=== PATIENT | male | born 1955 | race African-American/Black ===

== ENCOUNTER 2016-06-09 10:32 | Inpatient (IN) | payer OTHER ==
--- NOTE | 2016-06-09 13:57 | HP ---
COWS - Scale Resting Pulse: 0= [place] 80 or Below Sweatin= Chills/Flushing Restless Observation: 3= Extraneous Movement Pupil Size: 2= Moderately Dilated Bone or Joint Aches: 4=Acute Joint/Muscle Pain Runny Nose/ Eye Tearin= Runny Nose/Eyes GI Upset > 30mins: 2= Nausea/Diarrhea Tremor Observation: 1= Tremor [place], Not Seen Yawning Observation: 2= >3x During Session Anxiety or Irritability: 2=Irritable/Anxious Goose Flesh Skin: 0=Smooth Skin COWS Score: 19 CIWA Score - CIWA Score Nausea/Vomitin-Int. Nausea w/Dry Heave Muscle Tremors: 3 Anxiety: 4-Mod. Anxious/Guarded Agitation: 3 Paroxysmal Sweats: 1-Minimal Palms Moist Orientation: 0-Oriented Tacttile Disturbances: 3-Moderate Itch/Numb/Burn Auditory Disturbances: 0-None Visual Disturbances: 0-None Headache: 2-Mild CIWA-Ar Total Score: 20 Admission ROS BHS - HPI Chief Complaint: DETOX TX FOR ALCOHOL AND HEROIN DEPENDENCE Allergies/Adverse Reactions: Allergies Allergy/AdvReac Type Severity Reaction Status Date / Time Pork/Porcine Containing Allergy Unknown Swelling Verified 06/09/16 12:06 Products No Known Drug Allergies Allergy Verified 06/09/16 12:06 History of Present Illness: 60 Y/O AA/MALE WITH A HX OF HEROIN,ALCOHOL AND COCAINE DEPENDENCE SEEKING DETOX [place] Exam Limitations: No Limitations - Ebola screening Have you traveled outside of the country in the last 21 days: No Have you had contact with anyone from an Ebola affected area: No Have you been sick,other than usual withdrawal symptoms: No Do you have a fever: No - Review of Systems Constitutional: Chills, Loss of Appetite, Night Sweats, Changes in sleep, Unintentional Wgt. Loss EENT: reports: Blurred Vision, Nose Congestion, Dental Problems, Other (DRY EYES ) Respiratory: reports: No Symptoms reported Cardiac: reports: Lightheadedness GI: reports: Constipated, Diarrhea, Nausea, Poor Appetite, Vomiting, Abdominal cramping : reports: No Symptoms Reported Musculoskeletal: reports: Back Pain, Joint Pain, Muscle Pain, Neck Pain Integumentary: reports: Lesions (LEFT LEG), Rash (LEFT LEG) Neuro: reports: Headache, Unsteady Gait, Dizziness Endocrine: reports: No Symptoms Reported Hematology: reports: Anemia Psychiatric: reports: Orientated x3, Anxious, Depressed Other Systems: Reviewed and Negative Patient History - Patient Medical History Hx Anemia: Yes (NO MEDS) Hx Asthma: No Hx Chronic Obstructive Pulmonary Disease (COPD): No Hx Cancer: No Hx Cardiac Disorders: No Hx Congestive Heart Failure: No Hx Hypertension: Yes (NO CURRENT MEDS) Hx Hypercholesterolemia: No Hx Pacemaker: No HX Cerebrovascular Accident: No Hx Seizures: No Hx Dementia: No Hx Diabetes: No Hx Gastrointestinal Disorders: No Hx Liver Disease: No Hx Genitourinary Disorders: No Hx Sexually Transmitted Disorders: No Hx Renal Disease (ESRD): No Hx Thyroid Disease: No Hx Human Immunodeficiency Virus (HIV): No (NEGATIVE HX) Hx Hepatitis C: Yes (NO TREATMENT) Hx Depression: Yes (NO CURRENT MED) Hx Suicide Attempt: No (DENIES) Hx Schizophrenia: No - Patient Surgical History Past Surgical History: No Hx Neurologic Surgery: No Hx Cataract Extraction: No Hx Cardiac Surgery: No Hx Lung Surgery: No Hx Breast Surgery: No Hx Breast Biopsy: No Hx Abdominal Surgery: No Hx Appendectomy: No Hx Cholecystectomy: No Hx Genitourinary Surgery: No Hx Orthopedic Surgery: No Anesthesia Reaction: No - PPD History Previous Implant?: Yes Documented Results: Positive w/o proof Implanted On Prior [facility] Admission?: No Results: POSITIVE PPD to be Administered?: No - Reproductive History Patient is a Female of Child Bearing Age (11 -55 yrs old): No (MALE) - Smoking Cessation Smoking history: Current every day smoker Have you smoked in the past 12 months: Yes Aproximately how many cigarettes per day: 20 Cigars Per Day: 20 Hx Chewing Tobacco Use: No Initiated information on smoking cessation: Yes 'Breaking Loose' booklet given: 06/09/16 - Substance & Tx. History Hx Alcohol Use: Yes (BEER) Hx Substance Use: Yes (HEROIN/CRACK) Substance Use Type: Alcohol, Cocaine, Heroin Hx Substance Use Treatment: Yes ([facility]-DETOX) - Substances Abused Heroin Route: Inhalation Frequency: Daily Amount used: 8-10 bags Age of first use: 18 Date of Last Use: 06/08/16 Crack Route: Smoking Frequency: Daily Amount used: $150 Age of first use: 26 Date of Last Use: 06/08/16 Alcohol-beer Route: Oral Frequency: 3-6 times per week Amount used: 3-4 (24 oz.) Age of first use: 15 Date of Last Use: 06/08/16 Family Disease History - Family Disease History Family Disease History: Other: Father (HTN,alcohol) Admission Physical Exam [facility] - Vital Signs Vital Signs: Vital Signs - 24 hr 06/09/16 11:14 Temperature 96.5 F L Pulse Rate 53 L Respiratory 18 Rate Blood Pressure 162/102 - Physical General Appearance: Yes: Moderate Distress, Irritable, Anxious HEENTM: Yes: EOMI, Normocephalic, JOSE ALBERTO, Pharynx Normal Respiratory: Yes: Chest Non-Tender, Lungs Clear, Normal Breath Sounds, No Respiratory Distress Neck: Yes: Supple, Trachea in good position Breast: Yes: Breast Exam Deferred Cardiology: Yes: Regular Rhythm, S1, S2, Irregular Abdominal: Yes: Normal Bowel Sounds, Non Tender, Soft Genitourinary: Yes: Other (N/C) Back: Yes: Within Normal Limits Musculoskeletal: Yes: full range of Motion, Gait Steady Extremities: Yes: Normal Range of Motion, Non-Tender Neurological: Yes: newspaper delivery driver II-XII NML intact, Fully Oriented, Alert, Motor Strength 5/5 Integumentary: Yes: Dry, Warm Lymphatic: Yes: Within Normal Limits - Diagnostic (1) Anemia, macrocytic Current Visit: Yes Status: Suspected (2) HTN (hypertension) Current Visit: Yes Status: Chronic Qualifiers: Hypertension type: essential hypertension Qualified Code(s): I10 - Essential (primary) hypertension (3) Nicotine dependence Current Visit: Yes Status: Acute Qualifiers: Nicotine product type: cigarettes Substance use status: in withdrawal Qualified Code(s): F17.213 - Nicotine dependence, cigarettes, with withdrawal (4) Opioid dependence with withdrawal Current Visit: Yes Status: Acute (5) Cocaine dependence, uncomplicated Current Visit: Yes Status: Acute (6) Alcohol dependence with uncomplicated withdrawal Current Visit: Yes Status: Acute (7) Hx of hepatitis C Current Visit: Yes Status: Chronic (8) History of depression Current Visit: Yes Status: Chronic (9) Dry eyes, bilateral Current Visit: Yes Status: Chronic Cleared for Admission [facility] - Detox or Rehab [facility] Level of Care: Medically Managed Detox Regimen/Protocol: Methadone/Librium [facility] Breath Alcohol Content Breath Alcohol Content: 0 Urine Drug Screen - Results Drug Screen Negative: No Urine Drug Screen Results: ANA ROSA-Cocaine, OPI-Opiates
[2016-06-09] MEDS ORDERED: MENTHOL/PHENOL 1 EACH UD MM PRN (14:11)
[2016-06-09] MEDS ORDERED: chlordiazePOXIDE HCL 25 MG CAPSULE PO PRN (14:11)
[2016-06-09] MEDS ORDERED: P-EPHED 60MG/TRIPROLIDI 2.5MG TABLET PO PRN (14:11)
[2016-06-09] MEDS ORDERED: MAGNESIUM HYDROX 2400MG/30ML ORAL SUSPENSION 30 ML CUP PO PRN (14:11)
[2016-06-09] MEDS ORDERED: MAG HYDROX/AL HYDROX/SIMETH 30 ML UNIT-DOSE CUP PO PRN (14:11)
[2016-06-09] MEDS ORDERED: MAGNESIUM CITRATE 300 ML BOTTLE PO PRN (14:11)
[2016-06-09] MEDS ORDERED: LOPERAMIDE HCL 2 MG CAPSULE PO PRN (14:11)
[2016-06-09] MEDS ORDERED: hydrOXYzine PAMOATE 25 MG CAPSULE (FP) PO PRN (14:11)
[2016-06-09] MEDS ORDERED: guaiFENesin/D-METHORPHAN HB 10 ML UNIT-DOSE CUPS PO PRN (14:11)
[2016-06-09] MEDS ORDERED: NICOTINE POLACRILEX 4 MG GUM BUC PRN (14:11)
[2016-06-09] MEDS ORDERED: IBUPROFEN 400 MG TABLET (FP) PO PRN (14:11)
[2016-06-09] MEDS ORDERED: amLODIPine BESYLATE 10 MG TABLET (FP) PO ONE (14:28)
[2016-06-09] MEDS ORDERED: chlordiazePOXIDE HCL 25 MG CAPSULE PO ONE (14:29)
[2016-06-09] MEDS ORDERED: HYDROCHLOROTHIAZIDE 25 MG TABLET (FP) PO SCH (14:30)
[2016-06-09] MEDS ORDERED: METHADONE HCL 10 MG TABLET (FOR DETOX USE ONLY) PO ONE ×2 (14:30→23:00)
[2016-06-09] MEDS: NICOTINE 21 MG/24 HOURS TOPICAL PATCH TD SCH (15:08)
[2016-06-09] MEDS: ARTIFICIAL TEARS (POLYVINYL ALCOHOL 1.4%) OPTH DROPS OU SCH ×2 (15:10→22:22)
[2016-06-09] MEDS: chlordiazePOXIDE HCL 25 MG CAPSULE PO SCH ×2 (17:20→22:21)
[2016-06-09 20:18] LABS: URINE APPEARANCE CLEAR; URINE BILIRUBIN NEGATIVE (NEGATIVE); URINE BLOOD NEGATIVE (NEGATIVE); URINE COLOR YELLOW; URINE GLUCOSE (UA) 1+ (NEGATIVE); URINE KETONE NEGATIVE (NEGATIVE); URINE LEUK ESTERASE NEGATIVE (NEGATIVE); URINE NITRITE NEGATIVE (NEGATIVE); URINE UROBILINOGEN NEGATIVE E.U./dl (0.2-1.0)
[2016-06-09 20:21] LABS: URINE PROTEIN 1+ (NEGATIVE)
[2016-06-09 20:24] LABS: URINE HYALINE CAST 1 /lpf; URINE MUCUS RARE; URINE RBC 1 /hpf (0-3); URINE WBC 1 /hpf (3-5)
[2016-06-09] MEDS: THIAMINE HCL 100 MG TABLET (FP) PO SCH (22:21)
[2016-06-09] MEDS: TOLNAFTATE 1% CREAM 15 GM TUBE TP SCH (22:22)
[2016-06-09] MEDS: diphenhydrAMINE HCL 50 MG CAPSULE PO PRN (22:22)
[2016-06-10] MEDS: chlordiazePOXIDE HCL 25 MG CAPSULE PO SCH ×4 (06:11→22:23)
[2016-06-10] MEDS: ARTIFICIAL TEARS (POLYVINYL ALCOHOL 1.4%) OPTH DROPS OU SCH ×3 (06:13→22:22)
[2016-06-10] MEDS: ACETAMINOPHEN 325 MG TABLET (FP) PO PRN ×2 (06:14→19:50)
[2016-06-10] MEDS ORDERED: METHADONE HCL 10 MG TABLET (FOR DETOX USE ONLY) PO SCH (10:00)
[2016-06-10 10:06] LABS: MCH 33.3 pg (25.7-33.7); MCHC 34.1 g/dl (32.0-35.9); MEAN CELL VOLUME 97.7 fl (80-96); MEAN PLT VOLUME 9.2 fl (7.5-11.1); RDW 11.9 % (11.9-15.9); WHITE BLOOD COUNT 4.2 K/mm3 (4.0-10.0)
[2016-06-10] MEDS ORDERED: ONDANSETRON *ODT* 4 MG TABLET SL PRN (10:22)
[2016-06-10] MEDS: amLODIPine BESYLATE 10 MG TABLET (FP) PO SCH (10:24)
[2016-06-10] MEDS: TOLNAFTATE 1% CREAM 15 GM TUBE TP SCH ×2 (10:24→22:22)
[2016-06-10] MEDS: PRENATAL VITAMINS W/ FOLIC ACID TABLET (FP) PO SCH (10:24)
[2016-06-10] MEDS: NICOTINE 21 MG/24 HOURS TOPICAL PATCH TD SCH (10:25)
[2016-06-10 10:51] LABS: ALBUMIN 3.9 g/dl (3.4-5.0); BILIRUBIN,TOTAL 1.7 mg/dL (0.2-1.0); CALCIUM 8.5 mg/dL (8.5-10.1); CREATININE 1.8 mg/dL (0.7-1.3); TOT PROT 7.2 g/dl (6.4-8.2)
--- NOTE | 2016-06-10 11:07 | CONSULT ---
[facility] Psychiatric Consult - Data Date of interview: 06/10/16 Admission source: [facility] Identifying data: Readmission to [facility] for this 60 y/o AA male seeking detox treatment for heroin,cocaine and alcohol dependence.Patient is single,a father of three,domiciled,unemployed and supported on [facility]. Substance Abuse History: - Smoking Cessation. Smoking history: Current every day smoker. Have you smoked in the past 12 months: Yes. Aproximately how many cigarettes per day: 20. Cigars Per Day: 20. Hx Chewing Tobacco Use: No. Initiated information on smoking cessation: Yes. 'Breaking Loose' booklet given : 06/09/16. - Substance & Tx. History. Hx Alcohol Use: Yes (BEER). Hx Substance Use: Yes (HEROIN/CRACK). Substance Use Type: Alcohol, Cocaine, Heroin. Hx Substance Use Treatment: Yes ([facility]-DETOX). - Substances Abused. * * Heroin. Route: Inhalation. Frequency: Daily. Amount used: 8-10 bags. Age of first use: 18. Date of Last Use: 06/08/16. Crack. Route: Smoking. Frequency: Daily. Amount used: $150. Age of first use: 26. Date of Last Use: 06/08/16. Alcohol-beer. Route: Oral. Frequency: 3-6 times per week. Amount used: 3-4 (24 oz.). Age of first use: 15. Date of Last Use: 06/08/16. Confirmed by patient. Medical History: Anemia,hepatitis C and hypertension. Psychiatric History: No psychiatric hospitalizations.Diagnosed with MDD.Patient used to be followed at the [facility] in [place].Mr Centeno denies being on any medications.No history of suicide attempts. Physical/Sexual Abuse/Trauma History: Patient denies. Additional Comment: Urine Drug Screen Results: ANA ROSA-Cocaine, OPI-Opiates.Noted. Mental Status Exam - Mental Status Exam Alert and Oriented to: Time, Place, Person Cognitive Function: Good Patient Appearance: Well Groomed Mood: Withdrawn Affect: Mood Congruent, Constricted Patient Behavior: Fatigued, Appropriate, Cooperative Speech Pattern: Clear Voice Loudness: Normal Thought Process: Goal Oriented Thought Disorder: Not Present Hallucinations: Denies Suicidal Ideation: Denies Homicidal Ideation: Denies Insight/Judgement: Poor Sleep: Poorly, Difficulty falling asleep Appetite: Good Muscle strength/Tone: Normal Gait/Station: Normal Psychiatric Findings - Problem List ([place] 1, 2,3) (1) Alcohol dependence with uncomplicated withdrawal Current Visit: Yes Status: Acute (2) Cocaine dependence, uncomplicated Current Visit: Yes Status: Acute (3) Nicotine dependence Current Visit: Yes Status: Acute Qualifiers: Nicotine product type: cigarettes Substance use status: in withdrawal Qualified Code(s): F17.213 - Nicotine dependence, cigarettes, with withdrawal (4) Opioid dependence with withdrawal Current Visit: Yes Status: Acute (5) Drug-induced mood disorder Current Visit: Yes Status: Acute (6) Dry eyes, bilateral Current Visit: Yes Status: Chronic (7) HTN (hypertension) Current Visit: Yes Status: Chronic Qualifiers: Hypertension type: essential hypertension Qualified Code(s): I10 - Essential (primary) hypertension (8) Hx of hepatitis C Current Visit: Yes Status: Chronic (9) Anemia, macrocytic Current Visit: Yes Status: Suspected (10) Insomnia Current Visit: Yes Status: Chronic - Initial Treatment Plan Initial Treatment Plan: Psychoeducation.Detoxification.Seroquel 50 mg po hs.Side effects/benefits discussed with the patient.Made aware of risk of metabolic syndrome,abnormal involuntary movements,oversedation/falls.Patient gave his agreement to follow this careplan.Observation.
--- NOTE | 2016-06-10 11:21 | PN ---
S CIWA - CIWA Score Nausea/Vomitin (N/VD) Muscle Tremors: 4-Moderate,w/Arms Extend Anxiety: 4-Mod. Anxious/Guarded Agitation: 4-Moderately Restless Paroxysmal Sweats: 1-Minimal Palms Moist Orientation: 0-Oriented Tacttile Disturbances: 3-Moderate Itch/Numb/Burn Auditory Disturbances: 0-None Visual Disturbances: 0-None Headache: 0-None Present CIWA-Ar Total Score: 21 BHS COWS - Scale Resting Pulse: 1= [place] 81-100 Sweatin= Chills/Flushing Restless Observation: 3= Extraneous Movement Pupil Size: 2= Moderately Dilated Bone or Joint Aches: 4=Acute Joint/Muscle Pain Runny Nose/ Eye Tearin= Nasal Congestion GI Upset > 30mins: 3= Vomiting/Diarrhea Tremor Observation of Outstretched Hands: 2= Slight Tremor Visible Yawning Observation: 2= >3x During Session Anxiety or Irritability: 2=Irritable/Anxious Goose Flesh Skin: 0=Smooth Skin COWS Score: 21 S Progress Note (SOAP) Subjective: ANXIETY,SWEATS,N/V/D, IRRITABILITY, BODY ACHES, FATIGUE Objective: 06/10/16 11:20 Vital Signs 06/10/16 06/10/16 06/10/16 03:30 06:20 10:56 Temperature 97.8 F 96.8 F L Pulse Rate 86 70 Respiratory 18 18 18 Rate Blood Pressure 156/86 149/96 Laboratory Last Values WBC 4.2 K/mm3 (4.0-10.0) D 06/10/16 06:00 RBC 3.59 M/mm3 (4.00-5.60) L 06/10/16 06:00 Hgb 12.0 GM/dL (11.7-16.9) 06/10/16 06:00 Hct 35.1 % (35.4-49) L 06/10/16 06:00 MCV 97.7 fl (80-96) H 06/10/16 06:00 MCHC 34.1 g/dl (32.0-35.9) 06/10/16 06:00 RDW 11.9 % (11.9-15.9) 06/10/16 06:00 Plt Count K/MM3 (134-434) 06/10/16 06:00 MPV 9.2 fl (7.5-11.1) 06/10/16 06:00 Sodium 141 mmol/L (136-145) 06/10/16 06:00 Potassium 3.5 mmol/L (3.5-5.1) 06/10/16 06:00 Chloride 108 mmol/L (98-107) H 06/10/16 06:00 Carbon Dioxide 22 mmol/L (21-32) 06/10/16 06:00 Anion Gap 11 (8-16) 06/10/16 06:00 BUN 20 mg/dL (7-18) H 06/10/16 06:00 Creatinine 1.8 mg/dL (0.7-1.3) H D 06/10/16 06:00 Creat Clearance w eGFR 38.68 (>60) 06/10/16 06:00 Random Glucose 115 mg/dL (74-106) H D 06/10/16 06:00 Calcium 8.5 mg/dL (8.5-10.1) 06/10/16 06:00 Total Bilirubin 1.7 mg/dL (0.2-1.0) H D 06/10/16 06:00 AST 29 U/L (15-37) D 06/10/16 06:00 ALT 12 U/L (12-78) 06/10/16 06:00 Alkaline Phosphatase 83 U/L (45-117) D 06/10/16 06:00 Total Protein 7.2 g/dl (6.4-8.2) 06/10/16 06:00 Albumin 3.9 g/dl (3.4-5.0) 06/10/16 06:00 Urine Color Yellow 06/09/16 19:00 Urine Appearance Clear 06/09/16 19:00 Urine pH 6.0 (5.0-8.0) 06/09/16 19:00 Ur Specific [place] 1.019 (1.001-1.035) 06/09/16 19:00 Urine Protein 1+ (NEGATIVE) H 06/09/16 19:00 Urine Glucose (UA) 1+ (NEGATIVE) H 06/09/16 19:00 Urine Ketones Negative (NEGATIVE) 06/09/16 19:00 Urine Blood Negative (NEGATIVE) 06/09/16 19:00 Urine Nitrite Negative (NEGATIVE) 06/09/16 19:00 Urine Bilirubin Negative (NEGATIVE) 06/09/16 19:00 Urine Urobilinogen Negative E.U./dl (0.2-1.0) 06/09/16 19:00 Ur Leukocyte Esterase Negative (NEGATIVE) 06/09/16 19:00 Urine RBC 1 /hpf (0-3) 06/09/16 19:00 Urine WBC 1 /hpf (3-5) 06/09/16 19:00 Ur Epithelial Cells Rare /hpf (FEW) 06/09/16 19:00 Hyaline Casts 1 /lpf 06/09/16 19:00 Urine Mucus Rare 06/09/16 19:00 Assessment: 06/10/16 11:21 WITHDRAWAL SX Plan: CONTINUE DETOX
[2016-06-10] MEDS ORDERED: INFLUENZA VACCINE 45 MCG/0.5 ML (MDV 16-17) IM ONE (12:00)
[2016-06-10 12:39] LABS: PLATELET COMMENT2 NO CLOTTING DETECTED
--- NOTE | 2016-06-10 16:56 | EKG ---
Test Reason : Blood Pressure : / mmHG Vent. Rate : 071 BPM Atrial Rate : 071 BPM P-R Int : 170 ms QRS Dur : 086 ms QT Int : 406 ms P-R-T Axes : 079 -09 099 degrees QTc Int : 441 ms SINUS RHYTHM WITH PREMATURE ATRIAL COMPLEXES WITH ABERRANT CONDUCTION PREMATURE VENTRICULAR AND FUSION COMPLEXES RIGHT ATRIAL ENLARGEMENT ABNORMAL ECG NO PREVIOUS ECGS AVAILABLE Confirmed by PAULA CAMERON MD ([id number]) on 06/10/2016 4:55:52 PM Referred By: Confirmed By:PAULA CAMERON MD
[2016-06-10] MEDS: QUEtiapine FUMARATE 50 MG TABLET PO SCH (22:22)
[2016-06-10] MEDS: THIAMINE HCL 100 MG TABLET (FP) PO SCH (22:22)
[2016-06-11] MEDS: ARTIFICIAL TEARS (POLYVINYL ALCOHOL 1.4%) OPTH DROPS OU SCH ×3 (05:46→22:20)
[2016-06-11] MEDS: chlordiazePOXIDE HCL 25 MG CAPSULE PO SCH ×2 (05:47→10:24)
[2016-06-11] MEDS: TOLNAFTATE 1% CREAM 15 GM TUBE TP SCH ×2 (10:24→22:21)
[2016-06-11] MEDS: amLODIPine BESYLATE 10 MG TABLET (FP) PO SCH (10:24)
[2016-06-11] MEDS: PRENATAL VITAMINS W/ FOLIC ACID TABLET (FP) PO SCH (10:24)
[2016-06-11] MEDS: METHADONE HCL 5 MG TABLET (FOR DETOX USE ONLY) PO SCH (10:24)
[2016-06-11] MEDS: NICOTINE 21 MG/24 HOURS TOPICAL PATCH TD SCH (10:24)
--- NOTE | 2016-06-11 10:41 | PN ---
S CIWA - CIWA Score Nausea/Vomitin-Int. Nausea w/Dry Heave Muscle Tremors: 4-Moderate,w/Arms Extend Anxiety: 4-Mod. Anxious/Guarded Agitation: 4-Moderately Restless Paroxysmal Sweats: 1-Minimal Palms Moist Orientation: 0-Oriented Tacttile Disturbances: 3-Moderate Itch/Numb/Burn Auditory Disturbances: 0-None Visual Disturbances: 0-None Headache: 0-None Present CIWA-Ar Total Score: 20 BHS COWS - Scale Resting Pulse: 1= [place] 81-100 Sweatin= Chills/Flushing Restless Observation: 3= Extraneous Movement Pupil Size: 2= Moderately Dilated Bone or Joint Aches: 4=Acute Joint/Muscle Pain Runny Nose/ Eye Tearin= Runny Nose/Eyes GI Upset > 30mins: 2= Nausea/Diarrhea Tremor Observation of Outstretched Hands: 2= Slight Tremor Visible Yawning Observation: 1= 1-2x During Session Anxiety or Irritability: 2=Irritable/Anxious Goose Flesh Skin: 0=Smooth Skin COWS Score: 20 BHS Progress Note (SOAP) Subjective: ANXIETY,IRRITABILITY,CHILLS/SWEATS,HEADACHE,FATIGUE,DECREASED APPETITE. Objective: 06/11/16 10:40 Vital Signs 06/11/16 06/11/16 06/11/16 03:30 06:34 10:16 Temperature 96.4 F L 98.3 F Pulse Rate 89 80 Respiratory 18 16 20 Rate Blood Pressure 127/84 120/80 Assessment: 06/11/16 10:40 WITHDRAWAL SX Plan: CONTINUE DETOX ZOFRAN DIRECTED
[2016-06-11] MEDS: chlordiazePOXIDE 5 MG CAPSULE PO SCH ×2 (17:16→22:21)
[2016-06-11] MEDS: ACETAMINOPHEN 325 MG TABLET (FP) PO PRN (17:19)
[2016-06-11] MEDS ORDERED: ASPIRIN 325 MG ENTERIC COATED TABLET (FP) PO ONE (20:27)
--- NOTE | 2016-06-11 20:30 | PN ---
[facility] Progress Note Note: RECEIVED NURSE CALL, PATIENT HAS HEADACHE, TREATED WITH ASPIRIN AT HOME EFFECTIVELY, DENIES GI DISTRESS DENIES GI ADVERSE REACTION FROM ASPIRIN DISCONTINUE MOTRIN ASPIRIN 325 MG X 1 WITH FOOD CONTINUE DETOX
[2016-06-11] MEDS: THIAMINE HCL 100 MG TABLET (FP) PO SCH (22:20)
[2016-06-11] MEDS: QUEtiapine FUMARATE 50 MG TABLET PO SCH (22:21)
[2016-06-11] MEDS: diphenhydrAMINE HCL 50 MG CAPSULE PO PRN (22:22)
[2016-06-12] MEDS: ARTIFICIAL TEARS (POLYVINYL ALCOHOL 1.4%) OPTH DROPS OU SCH ×3 (06:12→22:22)
[2016-06-12] MEDS: chlordiazePOXIDE 5 MG CAPSULE PO SCH ×2 (06:16→10:29)
[2016-06-12] MEDS: METHADONE HCL 5 MG TABLET (FOR DETOX USE ONLY) PO SCH (10:29)
[2016-06-12] MEDS: PRENATAL VITAMINS W/ FOLIC ACID TABLET (FP) PO SCH (10:29)
[2016-06-12] MEDS: NICOTINE 21 MG/24 HOURS TOPICAL PATCH TD SCH (10:29)
[2016-06-12] MEDS: TOLNAFTATE 1% CREAM 15 GM TUBE TP SCH ×2 (10:29→22:22)
[2016-06-12] MEDS: amLODIPine BESYLATE 10 MG TABLET (FP) PO SCH (10:29)
--- NOTE | 2016-06-12 11:08 | PN ---
BHS Progress Note (SOAP) Subjective: ANXIETY,SWEATS,,DECREASED FATIGUE. Objective: 06/12/16 11:08 Vital Signs Temperature 97.9 F 06/12/16 09:26 Pulse Rate 76 06/12/16 09:26 Respiratory Rate 18 06/12/16 09:26 Blood Pressure 150/93 06/12/16 09:26 O2 Sat by Pulse Oximetry (%) Assessment: 06/12/16 11:08 WITHDRAWAL SX Plan: CONTINUE DETOX
[2016-06-12] MEDS: chlordiazePOXIDE HCL 10 MG CAPSULE PO SCH ×2 (17:24→22:23)
[2016-06-12] MEDS: ACETAMINOPHEN 325 MG TABLET (FP) PO PRN (17:27)
[2016-06-12] MEDS: CYCLOBENZAPRINE HCL 10 MG TABLET (FP) PO PRN (17:27)
[2016-06-12] MEDS: QUEtiapine FUMARATE 50 MG TABLET PO SCH (22:23)
[2016-06-12] MEDS: diphenhydrAMINE HCL 50 MG CAPSULE PO PRN (22:23)
[2016-06-12] MEDS: THIAMINE HCL 100 MG TABLET (FP) PO SCH (22:23)
[2016-06-13] MEDS: chlordiazePOXIDE HCL 10 MG CAPSULE PO SCH ×2 (06:27→10:25)
[2016-06-13] MEDS: ARTIFICIAL TEARS (POLYVINYL ALCOHOL 1.4%) OPTH DROPS OU SCH ×3 (06:28→22:27)
[2016-06-13] MEDS ORDERED: METHADONE HCL 10 MG TABLET (FOR DETOX USE ONLY) PO SCH (10:00)
[2016-06-13] MEDS: NICOTINE 21 MG/24 HOURS TOPICAL PATCH TD SCH (10:25)
[2016-06-13] MEDS: amLODIPine BESYLATE 10 MG TABLET (FP) PO SCH (10:25)
[2016-06-13] MEDS: TOLNAFTATE 1% CREAM 15 GM TUBE TP SCH ×2 (10:25→22:27)
[2016-06-13] MEDS: PRENATAL VITAMINS W/ FOLIC ACID TABLET (FP) PO SCH (10:25)
--- NOTE | 2016-06-13 11:33 | PN ---
BHS Progress Note (SOAP) Subjective: sweating,interrupted sleep,restless Objective: 06/13/16 11:32 Vital Signs - 8 hr 06/13/16 10:55 Temperature 98.0 F Pulse Rate 80 Respiratory 20 Rate Blood Pressure 149/98 Laboratory Tests 06/09/16 06/10/16 06/10/16 19:00 06:00 06:00 WBC 4.2 D RBC 3.59 L Hgb 12.0 Hct 35.1 L MCV 97.7 H MCHC 34.1 RDW 11.9 Plt Count Nuisance Animal Damage Control Agent MPV 9.2 Platelet Comment No clotting detected Sodium 141 Potassium 3.5 Chloride 108 H Carbon Dioxide 22 Anion Gap 11 BUN 20 H Creatinine 1.8 H D Creat Clearance w eGFR 38.68 Random Glucose 115 H D Calcium 8.5 Total Bilirubin 1.7 H D AST 29 D ALT 12 Alkaline Phosphatase 83 D Total Protein 7.2 Albumin 3.9 Urine Color Yellow Urine Appearance Clear Urine pH 6.0 Ur Specific [place] 1.019 Urine Protein 1+ H Urine Glucose (UA) 1+ H Urine Ketones Negative Urine Blood Negative Urine Nitrite Negative Urine Bilirubin Negative Urine Urobilinogen Negative Ur Leukocyte Esterase Negative Urine RBC 1 Urine WBC 1 Ur Epithelial Cells Rare Hyaline Casts 1 Urine Mucus Rare RPR Titer 06/10/16 06:00 WBC RBC Hgb Hct MCV MCHC RDW Plt Count MPV Platelet Comment Sodium Potassium Chloride Carbon Dioxide Anion Gap BUN Creatinine Creat Clearance w eGFR Random Glucose Calcium Total Bilirubin AST ALT Alkaline Phosphatase Total Protein Albumin Urine Color Urine Appearance Urine pH Ur Specific [place] Urine Protein Urine Glucose (UA) Urine Ketones Urine Blood Urine Nitrite Urine Bilirubin Urine Urobilinogen Ur Leukocyte Esterase Urine RBC Urine WBC Ur Epithelial Cells Hyaline Casts Urine Mucus RPR Titer Nonreactive labs noted Assessment: 06/13/16 11:32 Withdrawal sx. Plan: Continue detox
[2016-06-13] MEDS: SODIUM CHLORIDE NASAL SPRAY 44 ML BOTTLE NS PRN ×2 (15:28→22:27)
[2016-06-13] MEDS: CYCLOBENZAPRINE HCL 10 MG TABLET (FP) PO PRN (17:12)
[2016-06-13] MEDS: ACETAMINOPHEN 325 MG TABLET (FP) PO PRN ×2 (17:13→22:30)
--- NOTE | 2016-06-13 21:56 | PN ---
[id number] PATIENT AMBULATING ON [address] WAY, ALERT, ORIENTED X 3, NO ACUTE DISTRESS, STEADY GAIT, SPEECH CLEARLY PATIENT POINTING RIGHT MID CHEST WALL IMMOBILE 10/30 UNCLASSIFIED PAIN X 3 MONTHS , DENIES TRAUMA, DENIES MUSCLE STRAIN, DENIES ACID REFLUX S1S2 RRR, CLEAR LUNG SOUNDS BILATERALLY, DENIES NAUSEA DENIES VOMITING, REGULAR BOWEL X 1 TODAY, DENIES ALTERATION APPETITE, TOLERATE FLUID FOOD WELL, 95% O2 SAT, DENIES WEAKNESS,
[2016-06-13] MEDS: THIAMINE HCL 100 MG TABLET (FP) PO SCH (22:24)
[2016-06-13] MEDS: diphenhydrAMINE HCL 50 MG CAPSULE PO PRN (22:28)
[2016-06-13] MEDS: QUEtiapine FUMARATE 50 MG TABLET PO SCH (22:28)
[2016-06-14] MEDS ORDERED: METHADONE HCL 5 MG TABLET (FOR DETOX USE ONLY) PO SCH (06:00)
[2016-06-14] MEDS: ARTIFICIAL TEARS (POLYVINYL ALCOHOL 1.4%) OPTH DROPS OU SCH (06:09)
--- NOTE | 2016-06-14 10:28 | DS ---
[facility] Detox Discharge Summary Admission Date: 06/09/16 Discharge Date: 06/14/16 - History Present History: Alcohol Dependence, Cocaine Dependence, Opioid Dependence Pertinent Past History: HTN HEP C - Physical Exam Results Vital Signs: Vital Signs Temperature 97.9 F 06/14/16 09:49 Pulse Rate 116 H 06/14/16 09:49 Respiratory Rate 18 06/14/16 09:49 Blood Pressure 134/92 06/14/16 09:49 O2 Sat by Pulse Oximetry (%) Pertinent Admission Physical Exam Findings: Withdrawal sx. Laboratory Last Values WBC 4.2 K/mm3 (4.0-10.0) D 06/10/16 06:00 RBC 3.59 M/mm3 (4.00-5.60) L 06/10/16 06:00 Hgb 12.0 GM/dL (11.7-16.9) 06/10/16 06:00 Hct 35.1 % (35.4-49) L 06/10/16 06:00 MCV 97.7 fl (80-96) H 06/10/16 06:00 MCHC 34.1 g/dl (32.0-35.9) 06/10/16 06:00 RDW 11.9 % (11.9-15.9) 06/10/16 06:00 Plt Count [employer] Lab Technician 06/10/16 06:00 MPV 9.2 fl (7.5-11.1) 06/10/16 06:00 Platelet Comment Marked plt clumping 06/10/16 06:00 Platelet Comment No clotting detected 06/10/16 06:00 Sodium 141 mmol/L (136-145) 06/10/16 06:00 Potassium 3.5 mmol/L (3.5-5.1) 06/10/16 06:00 Chloride 108 mmol/L (98-107) H 06/10/16 06:00 Carbon Dioxide 22 mmol/L (21-32) 06/10/16 06:00 Anion Gap 11 (8-16) 06/10/16 06:00 BUN 20 mg/dL (7-18) H 06/10/16 06:00 Creatinine 1.8 mg/dL (0.7-1.3) H D 06/10/16 06:00 Creat Clearance w eGFR 38.68 (>60) 06/10/16 06:00 Random Glucose 115 mg/dL (74-106) H D 06/10/16 06:00 Calcium 8.5 mg/dL (8.5-10.1) 06/10/16 06:00 Total Bilirubin 1.7 mg/dL (0.2-1.0) H D 06/10/16 06:00 AST 29 U/L (15-37) D 06/10/16 06:00 ALT 12 U/L (12-78) 06/10/16 06:00 Alkaline Phosphatase 83 U/L (45-117) D 06/10/16 06:00 Total Protein 7.2 g/dl (6.4-8.2) 06/10/16 06:00 Albumin 3.9 g/dl (3.4-5.0) 06/10/16 06:00 Urine Color Yellow 06/09/16 19:00 Urine Appearance Clear 06/09/16 19:00 Urine pH 6.0 (5.0-8.0) 06/09/16 19:00 Ur Specific [place] 1.019 (1.001-1.035) 06/09/16 19:00 Urine Protein 1+ (NEGATIVE) H 06/09/16 19:00 Urine Glucose (UA) 1+ (NEGATIVE) H 06/09/16 19:00 Urine Ketones Negative (NEGATIVE) 06/09/16 19:00 Urine Blood Negative (NEGATIVE) 06/09/16 19:00 Urine Nitrite Negative (NEGATIVE) 06/09/16 19:00 Urine Bilirubin Negative (NEGATIVE) 06/09/16 19:00 Urine Urobilinogen Negative E.U./dl (0.2-1.0) 06/09/16 19:00 Ur Leukocyte Esterase Negative (NEGATIVE) 06/09/16 19:00 Urine RBC 1 /hpf (0-3) 06/09/16 19:00 Urine WBC 1 /hpf (3-5) 06/09/16 19:00 Ur Epithelial Cells Rare /hpf (FEW) 06/09/16 19:00 Hyaline Casts 1 /lpf 06/09/16 19:00 Urine Mucus Rare 06/09/16 19:00 RPR Titer Nonreactive (NONREACTIVE) 06/10/16 06:00 labs noted - Treatment Hospital Course: Detox Protocol Followed, Detoxed Safely, Responded well, Discharged Condition Good, Rehab Referral Accepted - Medication Discharge Medications: Ambulatory Orders Unobtainable [Unobtainable] 06/09/16 - Diagnosis (1) Alcohol dependence with uncomplicated withdrawal Current Visit: Yes Status: Acute (2) Cocaine dependence, uncomplicated Current Visit: Yes Status: Acute (3) Opioid dependence with withdrawal Current Visit: Yes Status: Acute (4) HTN (hypertension) Current Visit: Yes Status: Chronic Qualifiers: Hypertension type: essential hypertension Qualified Code(s): I10 - Essential (primary) hypertension (5) Hx of hepatitis C Current Visit: Yes Status: Chronic (6) Drug-induced mood disorder Current Visit: Yes Status: Acute (7) Nicotine dependence Current Visit: Yes Status: Acute Qualifiers: Nicotine product type: cigarettes Substance use status: in withdrawal Qualified Code(s): F17.213 - Nicotine dependence, cigarettes, with withdrawal (8) Insomnia Current Visit: Yes Status: Chronic - AMA Did Patient Leave Against Medical Advice: No
[2016-06-14] MEDS: TOLNAFTATE 1% CREAM 15 GM TUBE TP SCH (10:40)
[2016-06-14] MEDS: NICOTINE 21 MG/24 HOURS TOPICAL PATCH TD SCH (10:40)
[2016-06-14] MEDS: PRENATAL VITAMINS W/ FOLIC ACID TABLET (FP) PO SCH (10:40)
[2016-06-14] MEDS: amLODIPine BESYLATE 10 MG TABLET (FP) PO SCH (10:40)
[2016-06-14] MEDS: SODIUM CHLORIDE NASAL SPRAY 44 ML BOTTLE NS PRN (10:41)
[2016-06-14] MEDS: ACETAMINOPHEN 325 MG TABLET (FP) PO PRN (10:42)
[2016-06-14 11:38] VITALS: BP 128/75; PULSE 92; TEMP 97.5
--- NOTE | 2016-06-16 12:43 | EKG ---
Test Reason : Blood Pressure : / mmHG Vent. Rate : 081 BPM Atrial Rate : 081 BPM P-R Int : 156 ms QRS Dur : 072 ms QT Int : 368 ms P-R-T Axes : 070 -01 028 degrees QTc Int : 427 ms NORMAL SINUS RHYTHM BIATRIAL ENLARGEMENT NONSPECIFIC ST AND T WAVE ABNORMALITY ABNORMAL ECG WHEN COMPARED WITH ECG OF 09-JUN-2016 14:15, PREMATURE VENTRICULAR AND FUSION COMPLEXES ARE NO LONGER PRESENT T WAVE AMPLITUDE HAS DECREASED IN ANTERIOR LEADS T WAVE VARIATION Confirmed by PAULA CAMERON MD ([id number]) on 06/16/2016 12:42:45 PM Referred By: Confirmed By:PAULA CAMERON MD
== END 2016-06-14 13:02 | disposition other institution (70) | DRG 773 ==
LOC: YASAS 10:32 → Y3N 14:03
PROVIDERS: ADMIT Internal Medicine; ATTEND Internal Medicine
PROC: HZ2ZZZZ Detoxification Services for Substance Abuse Treatment (ICD-10-PCS; principal; 2016-06-14)
DX: F11.23 Opioid dependence with withdrawal (principal); F10.230 Alcohol dependence with withdrawal, uncomplicated; F14.20 Cocaine dependence, uncomplicated; F17.213 Nicotine dependence, cigarettes, with withdrawal; F19.24 Other psychoactive substance dependence with psychoactive substance-induced mood disorder; F32.9 Major depressive disorder, single episode, unspecified; G47.00 Insomnia, unspecified; I10 Essential (primary) hypertension; B18.2 Chronic viral hepatitis C; D50.9 Iron deficiency anemia, unspecified; H04.123 Dry eye syndrome of bilateral lacrimal glands
CPT/HCPCS: 36415; 71020-TC; 80053; 81003; 81015; 85027; 86593; 93005; 93010

== ENCOUNTER 2016-08-04 11:00 | Inpatient (IN) | payer OTHER ==
[2016-08-04 12:52] VITALS: BMI 20.3
--- NOTE | 2016-08-04 14:19 | HP ---
COWS - Scale Resting Pulse: 0= [place] 80 or Below Sweatin=Flushed/Facial Moisture Restless Observation: 1= Difficult to Sit Still Pupil Size: 0= Normal to Room Light Bone or Joint Aches: 2= Severe Diffuse Aches Runny Nose/ Eye Tearin= Runny Nose/Eyes GI Upset > 30mins: 2= Nausea/Diarrhea Tremor Observation: 2= Slight Tremor Visible Yawning Observation: 2= >3x During Session Anxiety or Irritability: 2=Irritable/Anxious Goose Flesh Skin: 3=Piloerection COWS Score: 18 CIWA Score - CIWA Score Nausea/Vomitin-Mild Nausea/No Vomiting Muscle Tremors: 4-Moderate,w/Arms Extend Anxiety: 3 Agitation: 4-Moderately Restless Paroxysmal Sweats: 3 Orientation: 0-Oriented Tacttile Disturbances: 0-None Auditory Disturbances: 0-None Visual Disturbances: 0-None Headache: 0-None Present CIWA-Ar Total Score: 15 Admission ROS S - HPI Chief Complaint: I am here for detox. Allergies/Adverse Reactions: Allergies Allergy/AdvReac Type Severity Reaction Status Date / Time Pork/Porcine Containing Allergy Unknown Swelling Verified 08/04/16 13:51 Products No Known Drug Allergies Allergy Verified 08/04/16 13:51 History of Present Illness: pt is a60yr old male with a history of alcohol, opioid and cocaine dependence seeking detox for treatment. Exam Limitations: No Limitations - Ebola screening Have you traveled outside of the country in the last 21 days: No Have you had contact with anyone from an Ebola affected area: No Have you been sick,other than usual withdrawal symptoms: No Do you have a fever: No - Review of Systems Constitutional: Chills, Diaphoresis, Loss of Appetite, Night Sweats, Unintentional Wgt. Loss, Other EENT: reports: Tearing, Nose Congestion, Other (dry eyes) Respiratory: reports: No Symptoms reported Cardiac: reports: No Symptoms Reported GI: reports: Nausea, Poor Appetite : reports: No Symptoms Reported Musculoskeletal: reports: Back Pain, Joint Pain, Muscle Pain Integumentary: reports: Flushing, Sweating, Other Neuro: reports: Tingling, Tremors Endocrine: reports: Excessive Sweating, Flushing, Intolerance to Cold, Intolerance to Heat Hematology: reports: No Symptoms Reported Psychiatric: reports: Judgement Intact, Mood/Affect Appropiate, Orientated x3, Agitated, Anxious Other Systems: Reviewed and Negative Patient History - Patient Medical History Hx Anemia: No Hx Asthma: No Hx Chronic Obstructive Pulmonary Disease (COPD): No Hx Cancer: No Hx Cardiac Disorders: No Hx Congestive Heart Failure: No Hx Hypertension: Yes Hx Hypercholesterolemia: No Hx Pacemaker: No HX Cerebrovascular Accident: No Hx Seizures: No Hx Dementia: No Hx Diabetes: No Hx Gastrointestinal Disorders: No Hx Liver Disease: No Hx Genitourinary Disorders: No Hx Sexually Transmitted Disorders: No Hx Renal Disease (ESRD): No Hx Thyroid Disease: No Hx Human Immunodeficiency Virus (HIV): No (NEGATIVE HX) Hx Hepatitis C: Yes (NO TREATMENT) Hx Depression: No Hx Suicide Attempt: No (denies ) Hx Bipolar Disorder: No Hx Schizophrenia: No - Patient Surgical History Past Surgical History: No Hx Neurologic Surgery: No Hx Cataract Extraction: No Hx Cardiac Surgery: No Hx Lung Surgery: No Hx Breast Surgery: No Hx Breast Biopsy: No Hx Abdominal Surgery: No Hx Appendectomy: No Hx Cholecystectomy: No Hx Genitourinary Surgery: No Hx Section: No Hx Orthopedic Surgery: No Anesthesia Reaction: No - PPD History Previous Implant?: Yes Documented Results: Positive w/o proof Results: cxray(-)06/10/16 PPD to be Administered?: No - Reproductive History Patient is a Female of Child Bearing Age (11 -55 yrs old): No - Smoking Cessation Smoking history: Current every day smoker Have you smoked in the past 12 months: Yes Aproximately how many cigarettes per day: 15 Cigars Per Day: 20 Hx Chewing Tobacco Use: No Initiated information on smoking cessation: Yes 'Breaking Loose' booklet given: 08/04/16 - Substance & Tx. History Hx Alcohol Use: Yes Hx Substance Use: Yes Substance Use Type: Alcohol, Cocaine, Heroin Hx Substance Use Treatment: Yes - Substances Abused Heroin Route: Inhalation Frequency: Daily Amount used: 10 bags Age of first use: 18 Date of Last Use: 08/03/16 Cocaine Route: Inhalation Frequency: Daily Amount used: $200 Age of first use: 18 Date of Last Use: 08/03/16 Alcohol-beer Route: Oral Frequency: Daily Amount used: 2-6 pks. Age of first use: 17 Date of Last Use: 08/03/16 Family Disease History - Family Disease History Family Disease History: Other: Father (HTN,alcohol) Admission Physical Exam [facility] - Vital Signs Vital Signs: Vital Signs - 24 hr 08/04/16 12:50 Temperature 98.4 F Pulse Rate 68 Respiratory 20 Rate Blood Pressure 155/95 - Physical General Appearance: Yes: Appropriately Dressed, Tremorous, Irritable, Sweating, Anxious HEENTM: Yes: Normal Voice, Nasal Congestion Respiratory: Yes: Lungs Clear, Normal Breath Sounds, No Respiratory Distress Neck: Yes: No masses,lesions,Nodules Breast: Yes: Within Normal Limits Cardiology: Yes: Regular Rhythm, Regular Rate, S1, S2 Abdominal: Yes: Normal Bowel Sounds, Non Tender, Soft Genitourinary: Yes: Within Normal Limits Back: Yes: Normal Inspection Musculoskeletal: Yes: full range of Motion, Back pain Extremities: Yes: Normal Capillary Refill, Normal Inspection, Tremors Neurological: Yes: Fully Oriented, Alert, Normal Response Integumentary: Yes: Diaphoresis Lymphatic: Yes: Within Normal Limits - Diagnostic (1) Alcohol dependence with uncomplicated withdrawal Current Visit: Yes Status: Chronic (2) Cocaine dependence, uncomplicated Current Visit: Yes Status: Chronic (3) Nicotine dependence Current Visit: Yes Status: Chronic Qualifiers: Nicotine product type: cigarettes Substance use status: uncomplicated Qualified Code(s): F17.210 - Nicotine dependence, cigarettes, uncomplicated (4) Opioid dependence with withdrawal Current Visit: Yes Status: Chronic (5) Dry eyes, bilateral Current Visit: Yes Status: Chronic (6) HTN (hypertension) Current Visit: Yes Status: Chronic Qualifiers: Hypertension type: essential hypertension Qualified Code(s): I10 - Essential (primary) hypertension (7) Hx of hepatitis C Current Visit: No Status: Chronic Cleared for Admission [facility] - Detox or Rehab [facility] Level of Care: Medically Managed Detox Regimen/Protocol: Methadone/Librium [facility] Breath Alcohol Content Breath Alcohol Content: 0 Urine Drug Screen - Results Drug Screen Negative: No Urine Drug Screen Results: ANA ROSA-Cocaine, OPI-Opiates
[2016-08-04] MEDS ORDERED: chlordiazePOXIDE HCL 25 MG CAPSULE PO PRN (14:29)
[2016-08-04] MEDS ORDERED: MAGNESIUM CITRATE 300 ML BOTTLE PO PRN (14:29)
[2016-08-04] MEDS ORDERED: MENTHOL/PHENOL 1 EACH UD MM PRN (14:29)
[2016-08-04] MEDS ORDERED: P-EPHED 60MG/TRIPROLIDI 2.5MG TABLET PO PRN (14:29)
[2016-08-04] MEDS ORDERED: IBUPROFEN 400 MG TABLET (FP) PO PRN (14:29)
[2016-08-04] MEDS ORDERED: LOPERAMIDE HCL 2 MG CAPSULE PO PRN (14:29)
[2016-08-04] MEDS ORDERED: MAG HYDROX/AL HYDROX/SIMETH 30 ML UNIT-DOSE CUP PO PRN (14:29)
[2016-08-04] MEDS ORDERED: ACETAMINOPHEN 325 MG TABLET (FP) PO PRN (14:29)
[2016-08-04] MEDS ORDERED: guaiFENesin/D-METHORPHAN HB 10 ML UNIT-DOSE CUPS PO PRN (14:29)
[2016-08-04] MEDS ORDERED: MAGNESIUM HYDROX 2400MG/30ML ORAL SUSPENSION 30 ML CUP PO PRN (14:29)
[2016-08-04] MEDS ORDERED: chlordiazePOXIDE HCL 25 MG CAPSULE PO ONE (14:51)
[2016-08-04] MEDS ORDERED: METHADONE HCL 10 MG TABLET (FOR DETOX USE ONLY) PO ONE ×2 (14:52→23:00)
[2016-08-04] MEDS: ASPIRIN 325 MG TABLET PO SCH (15:55)
[2016-08-04] MEDS: amLODIPine BESYLATE 10 MG TABLET (FP) PO SCH (15:57)
[2016-08-04] MEDS: chlordiazePOXIDE HCL 25 MG CAPSULE PO SCH ×2 (17:04→22:12)
[2016-08-04 20:36] LABS: URINE APPEARANCE CLEAR; URINE BILIRUBIN NEGATIVE (NEGATIVE); URINE BLOOD NEGATIVE (NEGATIVE); URINE COLOR YELLOW; URINE GLUCOSE (UA) NEGATIVE (NEGATIVE); URINE KETONE NEGATIVE (NEGATIVE); URINE LEUK ESTERASE NEGATIVE (NEGATIVE); URINE NITRITE NEGATIVE (NEGATIVE); URINE UROBILINOGEN NEGATIVE E.U./dl (0.2-1.0)
[2016-08-04 20:37] LABS: URINE PROTEIN 1+ (NEGATIVE)
[2016-08-04 20:45] LABS: URINE HYALINE CAST 3 /lpf; URINE MUCUS RARE; URINE RBC 3 /hpf (0-3); URINE WBC 2 /hpf (3-5)
[2016-08-04] MEDS: diphenhydrAMINE HCL 50 MG CAPSULE PO PRN (22:12)
[2016-08-04] MEDS: THIAMINE HCL 100 MG TABLET (FP) PO SCH (22:12)
[2016-08-04] MEDS: ARTIFICIAL TEARS (POLYVINYL ALCOHOL 1.4%) OPTH DROPS OU PRN (22:14)
[2016-08-05] MEDS: chlordiazePOXIDE HCL 25 MG CAPSULE PO SCH ×4 (05:52→22:56)
[2016-08-05] MEDS: ARTIFICIAL TEARS (POLYVINYL ALCOHOL 1.4%) OPTH DROPS OU PRN ×3 (05:58→22:59)
[2016-08-05] MEDS ORDERED: METHADONE HCL 10 MG TABLET (FOR DETOX USE ONLY) PO SCH (10:00)
[2016-08-05 10:20] LABS: MCH 33.3 pg (25.7-33.7); MCHC 32.9 g/dl (32.0-35.9); MEAN CELL VOLUME 101.3 fl (80-96); MEAN PLT VOLUME 9.8 fl (7.5-11.1); PLATELET COUNT 175 K/MM3 (134-434); RDW 12.7 % (11.9-15.9); WHITE BLOOD COUNT 3.7 K/mm3 (4.0-10.0)
[2016-08-05] MEDS: ASPIRIN 325 MG TABLET PO SCH (10:40)
[2016-08-05] MEDS: amLODIPine BESYLATE 10 MG TABLET (FP) PO SCH (10:40)
[2016-08-05] MEDS: PRENATAL VITAMINS W/ FOLIC ACID TABLET (FP) PO SCH (10:40)
[2016-08-05] MEDS: NICOTINE 21 MG/24 HOURS TOPICAL PATCH TD SCH (10:45)
--- NOTE | 2016-08-05 11:12 | PN ---
[facility] Progress Note Note: left top foot fungal rash; lidex cream and bacitracin ordered encouraged to keep feet elevated to reduce mild swelling
[2016-08-05 11:14] LABS: ALBUMIN 4.8 g/dl (3.4-5.0); BILIRUBIN,TOTAL 1.5 mg/dL (0.2-1.0); CALCIUM 9.3 mg/dL (8.5-10.1); COCKROFT - GAULT 39.78; CREATININE 1.9 mg/dL (0.7-1.3); TOT PROT 8.5 g/dl (6.4-8.2)
[2016-08-05] MEDS: BACITRACIN 0.9 GM PACKET TP SCH (11:40)
--- NOTE | 2016-08-05 11:47 | PN ---
[facility] CIWA - CIWA Score Nausea/Vomitin Muscle Tremors: 3 Anxiety: 3 Agitation: 3 Paroxysmal Sweats: 1-Minimal Palms Moist Orientation: 0-Oriented Tacttile Disturbances: 1-Very Mild Itch/Numbness Auditory Disturbances: 1-Very Mild Visual Disturbances: 1-Very Mild Sensitivity Headache: 2-Mild CIWA-Ar Total Score: 18 [facility] COWS - Scale Resting Pulse: 0= [place] 80 or Below Sweatin= Chills/Flushing Restless Observation: 3= Extraneous Movement Pupil Size: 1= Pupils >than Normal Bone or Joint Aches: 2= Severe Diffuse Aches Runny Nose/ Eye Tearin= Runny Nose/Eyes GI Upset > 30mins: 3= Vomiting/Diarrhea Tremor Observation of Outstretched Hands: 2= Slight Tremor Visible Yawning Observation: 1= 1-2x During Session Anxiety or Irritability: 2=Irritable/Anxious Goose Flesh Skin: 0=Smooth Skin COWS Score: 17 S Progress Note (SOAP) Subjective: ALERT,IRRITABLE,ANXIOUS,INTERRUPTED SLEEP,PAIN IN THE BODY AND BACK Objective: 08/05/16 11:45 Vital Signs Temperature 97.9 F 08/05/16 09:45 Pulse Rate 83 08/05/16 09:45 Respiratory Rate 16 08/05/16 09:45 Blood Pressure 143/88 08/05/16 09:45 O2 Sat by Pulse Oximetry (%) EKG NSR 60/MIN NO CHEST PAIN,NO SOB,NO DIZZINESS Laboratory Last Values WBC 3.7 K/mm3 (4.0-10.0) L 08/05/16 06:00 RBC 3.96 M/mm3 (4.00-5.60) L 08/05/16 06:00 Hgb 13.2 GM/dL (11.7-16.9) 08/05/16 06:00 Hct 40.1 % (35.4-49) 08/05/16 06:00 MCV 101.3 fl (80-96) H 08/05/16 06:00 MCHC 32.9 g/dl (32.0-35.9) 08/05/16 06:00 RDW 12.7 % (11.9-15.9) 08/05/16 06:00 Plt Count 175 K/MM3 (134-434) 08/05/16 06:00 MPV 9.8 fl (7.5-11.1) 08/05/16 06:00 Urine Color Yellow 08/04/16 20:07 Urine Appearance Clear 08/04/16 20:07 Urine pH 5.0 (5.0-8.0) 08/04/16 20:07 Ur Specific [place] 1.020 (1.005-1.025) 08/04/16 20:07 Urine Protein 1+ (NEGATIVE) H 08/04/16 20:07 Urine Glucose (UA) Negative (NEGATIVE) 08/04/16 20:07 Urine Ketones Negative (NEGATIVE) 08/04/16 20:07 Urine Blood Negative (NEGATIVE) 08/04/16 20:07 Urine Nitrite Negative (NEGATIVE) 08/04/16 20:07 Urine Bilirubin Negative (NEGATIVE) 08/04/16 20:07 Urine Urobilinogen Negative E.U./dl (0.2-1.0) 08/04/16 20:07 Ur Leukocyte Esterase Negative (NEGATIVE) 08/04/16 20:07 Urine RBC 3 /hpf (0-3) 08/04/16 20:07 Urine WBC 2 /hpf (3-5) 08/04/16 20:07 Ur Epithelial Cells Rare /hpf (FEW) 08/04/16 20:07 Hyaline Casts 3 /lpf 08/04/16 20:07 Urine Mucus Rare 08/04/16 20:07 LABS PENDING Assessment: 08/05/16 11:46 WITHDRAWAL SYMPTOM Plan: CONTINUE DETOX
[2016-08-05] MEDS: hydrOXYzine PAMOATE 50 MG CAPSULE (FP) PO PRN (12:51)
[2016-08-05] MEDS: FLUOCINONIDE 0.05% CREAM (15 GM TUBE) TP SCH ×2 (14:13→22:56)
--- NOTE | 2016-08-05 17:22 | EKG ---
Test Reason : Blood Pressure : / mmHG Vent. Rate : 061 BPM Atrial Rate : 061 BPM P-R Int : 162 ms QRS Dur : 086 ms QT Int : 412 ms P-R-T Axes : 077 012 044 degrees QTc Int : 414 ms NORMAL SINUS RHYTHM BIATRIAL ENLARGEMENT LEFT VENTRICULAR HYPERTROPHY CANNOT RULE OUT SEPTAL INFARCT , AGE UNDETERMINED ABNORMAL ECG WHEN COMPARED WITH ECG OF 13-JUN-2016 16:21, MINIMAL CRITERIA FOR SEPTAL INFARCT ARE NOW PRESENT Confirmed by PAULA CAMERON MD ([id number]) on 08/05/2016 5:21:35 PM Referred By: Confirmed By:PALUA CAMERON MD
[2016-08-05] MEDS: THIAMINE HCL 100 MG TABLET (FP) PO SCH (22:56)
[2016-08-05] MEDS: diphenhydrAMINE HCL 50 MG CAPSULE PO PRN (22:56)
[2016-08-06] MEDS: chlordiazePOXIDE HCL 25 MG CAPSULE PO SCH ×2 (05:35→10:50)
[2016-08-06] MEDS: FLUOCINONIDE 0.05% CREAM (15 GM TUBE) TP SCH ×3 (06:50→22:42)
--- NOTE | 2016-08-06 09:14 | PN ---
[facility] CIWA - CIWA Score Nausea/Vomitin-No Nausea/No Vomiting Muscle Tremors: 4-Moderate,w/Arms Extend Anxiety: 3 Agitation: 4-Moderately Restless Paroxysmal Sweats: 3 Orientation: 0-Oriented Tacttile Disturbances: 0-None Auditory Disturbances: 0-None Visual Disturbances: 0-None Headache: 0-None Present CIWA-Ar Total Score: 14 S COWS - Scale Resting Pulse: 0= [place] 80 or Below Sweatin=Flushed/Facial Moisture Restless Observation: 1= Difficult to Sit Still Pupil Size: 0= Normal to Room Light Bone or Joint Aches: 2= Severe Diffuse Aches Runny Nose/ Eye Tearin= Runny Nose/Eyes GI Upset > 30mins: 1= Stomach Cramp Tremor Observation of Outstretched Hands: 2= Slight Tremor Visible Yawning Observation: 0= None Anxiety or Irritability: 2=Irritable/Anxious Goose Flesh Skin: 3=Piloerection COWS Score: 15 [facility] Progress Note (SOAP) Subjective: agitation anxiety sweats irritable chills Objective: 08/06/16 11:31 Vital Signs Temperature 97.7 F 08/06/16 09:45 Pulse Rate 92 H 08/06/16 09:45 Respiratory Rate 16 08/06/16 09:45 Blood Pressure 139/85 08/06/16 09:45 O2 Sat by Pulse Oximetry (%) Laboratory Tests 08/04/16 08/05/16 08/05/16 20:07 06:00 06:00 WBC 3.7 L RBC 3.96 L Hgb 13.2 Hct 40.1 MCV 101.3 H MCHC 32.9 RDW 12.7 Plt Count 175 MPV 9.8 Sodium 142 Potassium 4.2 Chloride 106 Carbon Dioxide 24 Anion Gap 12 BUN 27 H D Creatinine 1.9 H Creat Clearance w eGFR 36.34 Random Glucose 83 D Calcium 9.3 Total Bilirubin 1.5 H AST 26 ALT 17 D Alkaline Phosphatase 105 D Total Protein 8.5 H Albumin 4.8 D Urine Color Yellow Urine Appearance Clear Urine pH 5.0 Ur Specific [place] 1.020 Urine Protein 1+ H Urine Glucose (UA) Negative Urine Ketones Negative Urine Blood Negative Urine Nitrite Negative Urine Bilirubin Negative Urine Urobilinogen Negative Ur Leukocyte Esterase Negative Urine RBC 3 Urine WBC 2 Ur Epithelial Cells Rare Hyaline Casts 3 Urine Mucus Rare RPR Titer 08/05/16 06:00 WBC RBC Hgb Hct MCV MCHC RDW Plt Count MPV Sodium Potassium Chloride Carbon Dioxide Anion Gap BUN Creatinine Creat Clearance w eGFR Random Glucose Calcium Total Bilirubin AST ALT Alkaline Phosphatase Total Protein Albumin Urine Color Urine Appearance Urine pH Ur Specific [place] Urine Protein Urine Glucose (UA) Urine Ketones Urine Blood Urine Nitrite Urine Bilirubin Urine Urobilinogen Ur Leukocyte Esterase Urine RBC Urine WBC Ur Epithelial Cells Hyaline Casts Urine Mucus RPR Titer Nonreactive awake/alert ambulating no acute distress Assessment: 08/06/16 11:31 withdrawal sx Plan: continue detox increase fluids clonidine 0.1mg bid
[2016-08-06] MEDS: amLODIPine BESYLATE 10 MG TABLET (FP) PO SCH (10:49)
[2016-08-06] MEDS: cloNIDine HCL 0.1 MG TABLET PO SCH ×2 (10:49→22:29)
[2016-08-06] MEDS: ASPIRIN 325 MG TABLET PO SCH (10:49)
[2016-08-06] MEDS: BACITRACIN 0.9 GM PACKET TP SCH (10:49)
[2016-08-06] MEDS: PRENATAL VITAMINS W/ FOLIC ACID TABLET (FP) PO SCH (10:49)
[2016-08-06] MEDS: NICOTINE 21 MG/24 HOURS TOPICAL PATCH TD SCH (10:50)
[2016-08-06] MEDS: hydrOXYzine PAMOATE 50 MG CAPSULE (FP) PO PRN (10:50)
[2016-08-06] MEDS: METHADONE HCL 5 MG TABLET (FOR DETOX USE ONLY) PO SCH (10:50)
[2016-08-06] MEDS: chlordiazePOXIDE 5 MG CAPSULE PO SCH ×3 (17:41→22:29)
[2016-08-06] MEDS: diphenhydrAMINE HCL 50 MG CAPSULE PO PRN (22:28)
[2016-08-06] MEDS: THIAMINE HCL 100 MG TABLET (FP) PO SCH (22:29)
[2016-08-07] MEDS: diphenhydrAMINE HCL 50 MG CAPSULE PO PRN ×2 (01:18→22:13)
[2016-08-07] MEDS: chlordiazePOXIDE 5 MG CAPSULE PO SCH ×2 (05:48→10:56)
[2016-08-07] MEDS: FLUOCINONIDE 0.05% CREAM (15 GM TUBE) TP SCH ×3 (05:52→22:14)
[2016-08-07] MEDS: ASPIRIN 325 MG TABLET PO SCH (10:56)
[2016-08-07] MEDS: ARTIFICIAL TEARS (POLYVINYL ALCOHOL 1.4%) OPTH DROPS OU PRN ×2 (10:56→22:12)
[2016-08-07] MEDS: PRENATAL VITAMINS W/ FOLIC ACID TABLET (FP) PO SCH (10:56)
[2016-08-07] MEDS: amLODIPine BESYLATE 10 MG TABLET (FP) PO SCH (10:56)
[2016-08-07] MEDS: METHADONE HCL 5 MG TABLET (FOR DETOX USE ONLY) PO SCH (10:56)
[2016-08-07] MEDS: BACITRACIN 0.9 GM PACKET TP SCH (10:56)
[2016-08-07] MEDS: cloNIDine HCL 0.1 MG TABLET PO SCH ×2 (10:56→22:12)
[2016-08-07] MEDS: NICOTINE 21 MG/24 HOURS TOPICAL PATCH TD SCH (10:57)
--- NOTE | 2016-08-07 11:06 | PN ---
S Progress Note (SOAP) Subjective: ALERT,IRRITABLE,ANXIOUS,INTERRUPTED SLEEP,PAIN IN THE BODY Objective: 08/07/16 11:04 Vital Signs Temperature 98.2 F 08/07/16 09:26 Pulse Rate 71 08/07/16 09:26 Respiratory Rate 16 08/07/16 09:26 Blood Pressure 112/64 08/07/16 09:26 O2 Sat by Pulse Oximetry (%) Assessment: 08/07/16 11:04 WITHDRAWAL SYMPTOM Plan: CONTINUE DETOX,ENCOURAGE ORAL FLUID,CMP IN AM
[2016-08-07] MEDS: THIAMINE HCL 100 MG TABLET (FP) PO SCH (22:12)
[2016-08-07] MEDS: chlordiazePOXIDE HCL 10 MG CAPSULE PO SCH ×2 (22:13)
[2016-08-08] MEDS: chlordiazePOXIDE HCL 10 MG CAPSULE PO SCH ×2 (04:15→10:56)
[2016-08-08 06:46] VITALS: TEMP 97.9
[2016-08-08] MEDS ORDERED: METHADONE HCL 10 MG TABLET (FOR DETOX USE ONLY) PO SCH (10:00)
[2016-08-08 10:26] VITALS: BP 124/78; PULSE 76
--- NOTE | 2016-08-08 10:53 | PN ---
[facility] Progress Note (SOAP) Subjective: ALERT,INTERRUPTED SLEEP Objective: 08/08/16 10:52 Vital Signs Temperature 97.9 F 08/08/16 10:25 Pulse Rate 76 08/08/16 10:25 Respiratory Rate 16 08/08/16 10:25 Blood Pressure 124/78 08/08/16 10:25 O2 Sat by Pulse Oximetry (%) Assessment: 08/08/16 10:52 WITHDRAWAL SYMPTOM Plan: CONTINUE DETOX,DISCHARGE IN AM
[2016-08-08] MEDS: cloNIDine HCL 0.1 MG TABLET PO SCH (10:55)
[2016-08-08] MEDS: hydrOXYzine PAMOATE 50 MG CAPSULE (FP) PO PRN (10:55)
[2016-08-08] MEDS: PRENATAL VITAMINS W/ FOLIC ACID TABLET (FP) PO SCH (10:55)
[2016-08-08] MEDS: amLODIPine BESYLATE 10 MG TABLET (FP) PO SCH (10:55)
[2016-08-08] MEDS: ARTIFICIAL TEARS (POLYVINYL ALCOHOL 1.4%) OPTH DROPS OU PRN (10:56)
[2016-08-08] MEDS: BACITRACIN 0.9 GM PACKET TP SCH (10:56)
[2016-08-08] MEDS: ASPIRIN 325 MG TABLET PO SCH (10:56)
[2016-08-08] MEDS: NICOTINE 21 MG/24 HOURS TOPICAL PATCH TD SCH (10:57)
--- NOTE | 2016-08-08 11:27 | PN ---
S Progress Note Note: PATIENT IS THREATENING STAFFS,SECURITY CALLED TO UNIT,ADMINISTRATIVE DISCHARGE, ESCORTED OFF UNIT BY SECURITY
--- NOTE | 2016-08-08 11:31 | DS ---
[facility] Detox Discharge Summary Admission Date: 08/04/16 Discharge Date: 08/08/16 - History Present History: Alcohol Dependence, Cocaine Dependence, Opioid Dependence Additional Comments: PATIENT IS THREATENING THE STAFFS,SECURITIES CALLED TO UNIT,ADMINISTRATIVE DISCHARGE,ESCORTED OFF UNIT BY SECURITY Pertinent Past History: NICOTINE DEPENDENCE HEPATITIS C HYPERTENSION - Physical Exam Results Vital Signs: Vital Signs Temperature 97.9 F 08/08/16 10:25 Pulse Rate 76 08/08/16 10:25 Respiratory Rate 16 08/08/16 10:25 Blood Pressure 124/78 08/08/16 10:25 O2 Sat by Pulse Oximetry (%) Pertinent Admission Physical Exam Findings: WITHDRAWAL SYMPTOM - Medication Discharge Medications: Ambulatory Orders Amlodipine Besylate [Norvasc -] 10 mg PO DAILY 08/04/16 Aspirin [ASA -] 325 mg PO DAILY 08/04/16 - AMA Did Patient Leave Against Medical Advice: No
[2016-08-09] MEDS ORDERED: METHADONE HCL 5 MG TABLET (FOR DETOX USE ONLY) PO SCH (06:00)
== END 2016-08-08 11:14 | disposition home or self-care (01) | DRG 773 ==
LOC: YASAS 11:00 → Y6N 14:06 → UNDOADMIN 14:06 → Y6N 14:29
PROVIDERS: ADMIT Internal Medicine Addiction Medicine; ATTEND Internal Medicine Addiction Medicine
PROC: HZ2ZZZZ Detoxification Services for Substance Abuse Treatment (ICD-10-PCS; principal; 2016-08-08)
DX: F11.23 Opioid dependence with withdrawal (principal); F10.230 Alcohol dependence with withdrawal, uncomplicated; F14.20 Cocaine dependence, uncomplicated; F17.210 Nicotine dependence, cigarettes, uncomplicated; H04.123 Dry eye syndrome of bilateral lacrimal glands; Z91.19 Patient's noncompliance with other medical treatment and regimen; F91.8 Other conduct disorders
CPT/HCPCS: 36415; 80053; 81003; 81015; 85027; 86593; 93005; 93010

== ENCOUNTER 2016-10-11 11:06 | Inpatient (IN) | payer OTHER ==
[2016-10-11 11:29] VITALS: BMI 19.2
--- NOTE | 2016-10-11 12:46 | HP ---
COWS - Scale Resting Pulse: 0= [place] 80 or Below Sweatin= Chills/Flushing Restless Observation: 1= Difficult to Sit Still Pupil Size: 0= Normal to Room Light Bone or Joint Aches: 2= Severe Diffuse Aches Runny Nose/ Eye Tearin= Nasal Congestion GI Upset > 30mins: 1= Stomach Cramp Tremor Observation: 2= Slight Tremor Visible Yawning Observation: 1= 1-2x During Session Anxiety or Irritability: 1=Feels Anxious/Irritable Goose Flesh Skin: 0=Smooth Skin COWS Score: 10 CIWA Score - CIWA Score Nausea/Vomitin-Mild Nausea/No Vomiting Muscle Tremors: 4-Moderate,w/Arms Extend Anxiety: 4-Mod. Anxious/Guarded Agitation: 1-Slight > Activity Paroxysmal Sweats: 1-Minimal Palms Moist Orientation: 1-Uncertain about Date Tacttile Disturbances: 1-Very Mild Itch/Numbness Auditory Disturbances: 2-Mild Harshness/Frighten Visual Disturbances: 1-Very Mild Sensitivity Headache: 2-Mild CIWA-Ar Total Score: 18 Admission ROS [facility] - HPI Chief Complaint: I want to stop using, I need help, I need support or I'm going to , I have to do it Allergies/Adverse Reactions: Allergies Allergy/AdvReac Type Severity Reaction Status Date / Time Pork/Porcine Containing Allergy Unknown Swelling Verified 08/04/16 13:51 Products No Known Drug Allergies Allergy Verified 08/04/16 13:51 History of Present Illness: 61 yo gentleman here for detox from alcohol and heroin - one of many admissions. Denies seizures. Exam Limitations: Clinical Condition - Ebola screening Have you traveled outside of the country in the last 21 days: No Have you had contact with anyone from an Ebola affected area: No Have you been sick,other than usual withdrawal symptoms: No Do you have a fever: No - Review of Systems Constitutional: Chills, Loss of Appetite, Night Sweats, Changes in sleep, Weakness, Unexplained wgt Loss EENT: reports: Blurred Vision, Nose Congestion Respiratory: reports: No Symptoms reported Cardiac: reports: No Symptoms Reported GI: reports: Nausea, Poor Appetite, Indigestion : reports: Dysuria Musculoskeletal: reports: Back Pain, Muscle Pain Integumentary: reports: No Symptoms Reported Neuro: reports: Headache, Tremors Endocrine: reports: No Symptoms Reported Hematology: reports: No Symptoms Reported Psychiatric: reports: Judgement Intact, Mood/Affect Appropiate, Orientated x3, Anxious Other Systems: Reviewed and Negative Patient History - Patient Medical History Hx Anemia: No Hx Asthma: No Hx Chronic Obstructive Pulmonary Disease (COPD): No Hx Cancer: No Hx Cardiac Disorders: No Hx Congestive Heart Failure: No Hx Hypertension: Yes (poor adherence) Hx Hypercholesterolemia: No Hx Pacemaker: No HX Cerebrovascular Accident: No Hx Seizures: No Hx Dementia: No Hx Diabetes: No Hx Gastrointestinal Disorders: No Hx Liver Disease: Yes (hep c) Hx Genitourinary Disorders: No Hx Sexually Transmitted Disorders: No Hx Renal Disease (ESRD): No Hx Thyroid Disease: No Hx Human Immunodeficiency Virus (HIV): No (NEGATIVE HX) Hx Hepatitis C: Yes (NO TREATMENT) Hx Depression: Yes (history of meds) Hx Suicide Attempt: No (denies ) Hx Bipolar Disorder: No Hx Schizophrenia: No - Patient Surgical History Past Surgical History: No Hx Neurologic Surgery: No Hx Cataract Extraction: No Hx Cardiac Surgery: No Hx Lung Surgery: No Hx Breast Surgery: No Hx Breast Biopsy: No Hx Abdominal Surgery: No Hx Appendectomy: No Hx Cholecystectomy: No Hx Genitourinary Surgery: No Hx Section: No Hx Orthopedic Surgery: No Anesthesia Reaction: No - PPD History Previous Implant?: Yes Documented Results: Positive w/proof Implanted On Prior [facility] Admission?: No Results: cxray(-)06/10/16 PPD to be Administered?: No - Reproductive History Patient is a Female of Child Bearing Age (11 -55 yrs old): No (male) - Smoking Cessation Smoking history: Current every day smoker Have you smoked in the past 12 months: Yes Aproximately how many cigarettes per day: 15 Cigars Per Day: 20 Hx Chewing Tobacco Use: No Initiated information on smoking cessation: Yes 'Breaking Loose' booklet given: 10/11/16 (give on floor) - Substance & Tx. History Hx Alcohol Use: Yes Hx Substance Use: Yes Substance Use Type: Alcohol, Heroin Hx Substance Use Treatment: Yes (detox, rehab) - Substances Abused Alcohol Route: Oral Frequency: Daily Amount used: two 40oz beers; 4 shots Age of first use: 16 Date of Last Use: 10/10/16 Heroin Route: Inhalation Frequency: Daily Amount used: 15 bags Age of first use: 18 Date of Last Use: 10/10/16 Cocaine Route: Smoking Frequency: Daily Amount used: $100 Age of first use: 18 Date of Last Use: 10/10/16 Family Disease History - Family Disease History Family Disease History: Heart Disease: Father (, HTN,), Other: Father, Mother (, renal), Brother (three - one HIV - IVDU), Sister ( one - - seizure), Son (one - living - healthy), Daughter (two - living - healthy) Admission Physical Exam [facility] - Vital Signs Vital Signs: Vital Signs - 24 hr 10/11/16 11:28 Temperature 96.3 F L Pulse Rate 69 Respiratory 18 Rate Blood Pressure 155/99 - Physical General Appearance: Yes: Nourished, Appropriately Dressed, Mild Distress, Thin HEENTM: Yes: Hearing grossly Normal, Normocephalic, Normal Voice, Pharynx Normal , Rhinorrhea Respiratory: Yes: Normal Breath Sounds, No Respiratory Distress Neck: Yes: No masses,lesions,Nodules, Supple Breast: Yes: Breast Exam Deferred Cardiology: Yes: Regular Rhythm, Regular Rate Abdominal: Yes: Soft Genitourinary: Yes: Frequency Back: Yes: Normal Inspection Musculoskeletal: Yes: full range of Motion, Gait Steady Extremities: Yes: Normal Inspection, Non-Tender Neurological: Yes: Fully Oriented, Alert, Normal Mood/Affect, Normal Response Integumentary: Yes: Normal Color, Warm Lymphatic: Yes: Within Normal Limits - Diagnostic (1) Alcohol dependence with uncomplicated withdrawal Current Visit: Yes Status: Chronic (2) Dry eyes, bilateral Current Visit: Yes Status: Chronic (3) HTN (hypertension) Current Visit: Yes Status: Chronic Qualifiers: Hypertension type: essential hypertension Qualified Code(s): I10 - Essential (primary) hypertension (4) Hx of hepatitis C Current Visit: Yes Status: Chronic (5) Nicotine dependence Current Visit: Yes Status: Chronic Qualifiers: Nicotine product type: cigarettes Substance use status: uncomplicated Qualified Code(s): F17.210 - Nicotine dependence, cigarettes, uncomplicated (6) Opioid dependence with withdrawal Current Visit: Yes Status: Chronic (7) PPD positive, treated Current Visit: Yes Status: Chronic Cleared for Admission [facility] - Detox or Rehab [facility] Level of Care: Medically Managed Detox Regimen/Protocol: Methadone/Librium [facility] Breath Alcohol Content Breath Alcohol Content: 0 Urine Drug Screen - Results Drug Screen Negative: No Urine Drug Screen Results: ANA ROSA-Cocaine, OPI-Opiates
[2016-10-11] MEDS ORDERED: MAGNESIUM HYDROX 2400MG/30ML ORAL SUSPENSION 30 ML CUP PO PRN (12:55)
[2016-10-11] MEDS ORDERED: ACETAMINOPHEN 325 MG TABLET (FP) PO PRN (12:55)
[2016-10-11] MEDS ORDERED: hydrOXYzine PAMOATE 50 MG CAPSULE (FP) PO PRN (12:55)
[2016-10-11] MEDS ORDERED: guaiFENesin/D-METHORPHAN HB 10 ML UNIT-DOSE CUPS PO PRN (12:55)
[2016-10-11] MEDS ORDERED: chlordiazePOXIDE HCL 25 MG CAPSULE PO PRN (12:55)
[2016-10-11] MEDS ORDERED: LOPERAMIDE HCL 2 MG CAPSULE PO PRN (12:55)
[2016-10-11] MEDS ORDERED: IBUPROFEN 400 MG TABLET (FP) PO PRN (12:55)
[2016-10-11] MEDS ORDERED: MAGNESIUM CITRATE 300 ML BOTTLE PO PRN (12:55)
[2016-10-11] MEDS ORDERED: MENTHOL/PHENOL 1 EACH UD MM PRN (12:55)
[2016-10-11] MEDS ORDERED: P-EPHED 60MG/TRIPROLIDI 2.5MG TABLET PO PRN (12:55)
[2016-10-11] MEDS ORDERED: chlordiazePOXIDE HCL 25 MG CAPSULE PO ONE (14:30)
[2016-10-11] MEDS ORDERED: METHADONE HCL 10 MG TABLET (FOR DETOX USE ONLY) PO ONE ×2 (14:30→23:00)
[2016-10-11] MEDS: amLODIPine BESYLATE 10 MG TABLET (FP) PO SCH (15:57)
[2016-10-11] MEDS: NICOTINE 21 MG/24 HOURS TOPICAL PATCH TD SCH (16:01)
[2016-10-11] MEDS: TOLNAFTATE 1% CREAM 15 GM TUBE TP SCH ×2 (16:06→22:39)
[2016-10-11] MEDS: ARTIFICIAL TEARS (POLYVINYL ALCOHOL 1.4%) OPTH DROPS OU SCH ×2 (16:06→22:40)
[2016-10-11] MEDS: chlordiazePOXIDE HCL 25 MG CAPSULE PO SCH ×2 (17:30→22:41)
[2016-10-11 18:39] LABS: URINE APPEARANCE CLEAR; URINE BILIRUBIN NEGATIVE (NEGATIVE); URINE BLOOD NEGATIVE (NEGATIVE); URINE COLOR YELLOW; URINE GLUCOSE (UA) NEGATIVE (NEGATIVE); URINE KETONE NEGATIVE (NEGATIVE); URINE LEUK ESTERASE NEGATIVE (NEGATIVE); URINE NITRITE NEGATIVE (NEGATIVE); URINE UROBILINOGEN NEGATIVE mg/dL (0.2-1.0)
[2016-10-11 19:02] LABS: URINE PROTEIN 2+ (NEGATIVE)
[2016-10-11 19:04] LABS: URINE BACTERIA RARE /hpf (NONE SEEN); URINE HYALINE CAST 3 /lpf; URINE MUCUS RARE; URINE RBC 1 /hpf (0-3); URINE WBC 2 /hpf (3-5)
[2016-10-11] MEDS: THIAMINE HCL 100 MG TABLET (FP) PO SCH (22:39)
[2016-10-12] MEDS: chlordiazePOXIDE HCL 25 MG CAPSULE PO SCH ×4 (05:06→22:23)
[2016-10-12] MEDS: MAG HYDROX/AL HYDROX/SIMETH 30 ML UNIT-DOSE CUP PO PRN (05:08)
[2016-10-12] MEDS ORDERED: METHADONE HCL 10 MG TABLET (FOR DETOX USE ONLY) PO SCH (10:00)
[2016-10-12] MEDS: ARTIFICIAL TEARS (POLYVINYL ALCOHOL 1.4%) OPTH DROPS OU SCH ×2 (10:21→22:23)
[2016-10-12] MEDS: TOLNAFTATE 1% CREAM 15 GM TUBE TP SCH ×2 (10:22→22:23)
[2016-10-12] MEDS: PRENATAL VITAMINS W/ FOLIC ACID TABLET (FP) PO SCH (10:22)
[2016-10-12] MEDS: amLODIPine BESYLATE 10 MG TABLET (FP) PO SCH (10:22)
[2016-10-12] MEDS: NICOTINE 21 MG/24 HOURS TOPICAL PATCH TD SCH (10:22)
[2016-10-12 10:23] LABS: MCH 33.5 pg (25.7-33.7); MCHC 33.7 g/dl (32.0-35.9); MEAN CELL VOLUME 99.4 fl (80-96); PLATELET COUNT 147 K/MM3 (134-434); RDW 11.9 % (11.9-15.9); WHITE BLOOD COUNT 3.9 K/mm3 (4.0-10.0)
[2016-10-12 10:42] LABS: ALBUMIN 3.1 g/dl (3.4-5.0); ANION GAP 6 (8-16); CALCIUM 8.3 mg/dL (8.5-10.1); CO2 28 mmol/L (21-32); GLUCOSE,RANDOM 89 mg/dL (74-106); SGOT/AST 21 U/L (15-37); SGPT/ALT 11 U/L (12-78)
[2016-10-12 10:44] LABS: ALK PHOS 64 U/L (45-117); BILIRUBIN,TOTAL 0.5 mg/dL (0.2-1.0); CREATININE 1.8 mg/dL (0.7-1.3); TOT PROT 5.9 g/dl (6.4-8.2)
[2016-10-12] MEDS: CYCLOBENZAPRINE HCL 10 MG TABLET (FP) PO PRN ×2 (12:40→17:38)
--- NOTE | 2016-10-12 16:12 | PN ---
[facility] CIWA - CIWA Score Nausea/Vomitin Muscle Tremors: 4-Moderate,w/Arms Extend Anxiety: 4-Mod. Anxious/Guarded Agitation: 4-Moderately Restless Paroxysmal Sweats: 3 Orientation: 0-Oriented Tacttile Disturbances: 1-Very Mild Itch/Numbness Auditory Disturbances: 0-None Visual Disturbances: 0-None Headache: 0-None Present CIWA-Ar Total Score: 19 S COWS - Scale Resting Pulse: 0= [place] 80 or Below Sweatin=Flushed/Facial Moisture Restless Observation: 3= Extraneous Movement Pupil Size: 0= Normal to Room Light Bone or Joint Aches: 2= Severe Diffuse Aches Runny Nose/ Eye Tearin= Runny Nose/Eyes GI Upset > 30mins: 3= Vomiting/Diarrhea Tremor Observation of Outstretched Hands: 2= Slight Tremor Visible Yawning Observation: 1= 1-2x During Session Anxiety or Irritability: 2=Irritable/Anxious Goose Flesh Skin: 0=Smooth Skin COWS Score: 17 [facility] Progress Note (SOAP) Subjective: Sweating, anxious, stomach and body ache, diarrhea x 2, tremor, interrupted sleep Objective: 10/12/16 16:09 Last Vital Signs Temp Pulse Resp BP Pulse Ox 96.1 F L 73 18 128/76 10/12/16 14:38 10/12/16 14:38 10/12/16 14:38 10/12/16 14:38 Laboratory Tests 10/11/16 10/12/16 10/12/16 18:16 07:40 07:40 WBC 3.9 L RBC 3.10 L D Hgb 10.4 L D Hct 30.8 L D MCV 99.4 H MCH 33.5 MCHC 33.7 RDW 11.9 Plt Count 147 MPV 9.0 Sodium 142 Potassium 3.5 Chloride 108 H Carbon Dioxide 28 Anion Gap 6 L BUN 24 H Creatinine 1.8 H Creat Clearance w eGFR 38.55 Random Glucose 89 Calcium 8.3 L Total Bilirubin 0.5 D AST 21 ALT 11 L D Alkaline Phosphatase 64 D Total Protein 5.9 L D Albumin 3.1 L D Urine Color Yellow Urine Appearance Clear Urine pH 5.0 Ur Specific [place] 1.025 Urine Protein 2+ H Urine Glucose (UA) Negative Urine Ketones Negative Urine Blood Negative Urine Nitrite Negative Urine Bilirubin Negative Urine Urobilinogen Negative Ur Leukocyte Esterase Negative Urine RBC 1 Urine WBC 2 Urine Bacteria Rare Hyaline Casts 3 Urine Mucus Rare RPR Titer 10/12/16 07:40 WBC RBC Hgb Hct MCV MCH MCHC RDW Plt Count MPV Sodium Potassium Chloride Carbon Dioxide Anion Gap BUN Creatinine Creat Clearance w eGFR Random Glucose Calcium Total Bilirubin AST ALT Alkaline Phosphatase Total Protein Albumin Urine Color Urine Appearance Urine pH Ur Specific [place] Urine Protein Urine Glucose (UA) Urine Ketones Urine Blood Urine Nitrite Urine Bilirubin Urine Urobilinogen Ur Leukocyte Esterase Urine RBC Urine WBC Urine Bacteria Hyaline Casts Urine Mucus RPR Titer Nonreactive Labs noted: bun 24, serum creatinine 1.8, UA: 2+ protein Assessment: 10/12/16 16:08 Withdrawal symptoms Noted with KEYANA and proteinuria Plan: Continue detox KEYANA: encouraged to drink lots of water for hydration, water pitcher ordered, repeat BMP Proteinuria: encouraged to drink lots of water, repeat UA in AM
[2016-10-12] MEDS: THIAMINE HCL 100 MG TABLET (FP) PO SCH (22:23)
[2016-10-12] MEDS: diphenhydrAMINE HCL 50 MG CAPSULE PO PRN (22:23)
[2016-10-13] MEDS: chlordiazePOXIDE HCL 25 MG CAPSULE PO SCH ×2 (05:31→10:13)
[2016-10-13 10:10] LABS: ANION GAP 8 (8-16); CALCIUM 8.6 mg/dL (8.5-10.1); CO2 24 mmol/L (21-32); CREATININE 1.6 mg/dL (0.7-1.3); GLUCOSE,RANDOM 77 mg/dL (74-106)
[2016-10-13] MEDS: amLODIPine BESYLATE 10 MG TABLET (FP) PO SCH (10:13)
[2016-10-13] MEDS: METHADONE HCL 5 MG TABLET (FOR DETOX USE ONLY) PO SCH (10:13)
[2016-10-13] MEDS: ARTIFICIAL TEARS (POLYVINYL ALCOHOL 1.4%) OPTH DROPS OU SCH ×2 (10:13→22:22)
[2016-10-13] MEDS: TOLNAFTATE 1% CREAM 15 GM TUBE TP SCH ×2 (10:14→22:22)
[2016-10-13] MEDS: NICOTINE 21 MG/24 HOURS TOPICAL PATCH TD SCH (10:14)
[2016-10-13] MEDS: PRENATAL VITAMINS W/ FOLIC ACID TABLET (FP) PO SCH (10:14)
--- NOTE | 2016-10-13 11:31 | EKG ---
Test Reason : Blood Pressure : / mmHG Vent. Rate : 058 BPM Atrial Rate : 058 BPM P-R Int : 150 ms QRS Dur : 084 ms QT Int : 450 ms P-R-T Axes : 070 -01 019 degrees QTc Int : 441 ms SINUS BRADYCARDIA WITH PREMATURE ATRIAL COMPLEXES WITH ABERRANT CONDUCTION POSSIBLE LEFT ATRIAL ENLARGEMENT EARLY REPOLARIZATION BORDERLINE ECG WHEN COMPARED WITH ECG OF 04-AUG-2016 14:36, ABERRANT CONDUCTION IS NOW PRESENT MINIMAL CRITERIA FOR SEPTAL INFARCT ARE NO LONGER PRESENT Confirmed by ELVIA RUTHERFORD MD ([id number]) on 10/13/2016 11:31:14 AM Referred By: Confirmed By:ELVIA RUTHERFORD MD
--- NOTE | 2016-10-13 11:33 | PN ---
[facility] CIWA - CIWA Score Nausea/Vomitin-Mild Nausea/No Vomiting Muscle Tremors: 3 Anxiety: 4-Mod. Anxious/Guarded Agitation: 4-Moderately Restless Paroxysmal Sweats: 3 Orientation: 0-Oriented Tacttile Disturbances: 0-None Auditory Disturbances: 0-None Visual Disturbances: 0-None Headache: 0-None Present CIWA-Ar Total Score: 15 S COWS - Scale Resting Pulse: 0= [place] 80 or Below Sweatin=Flushed/Facial Moisture Restless Observation: 1= Difficult to Sit Still Pupil Size: 0= Normal to Room Light Bone or Joint Aches: 1= Mild Discomfort Runny Nose/ Eye Tearin= Nasal Congestion GI Upset > 30mins: 2= Nausea/Diarrhea Tremor Observation of Outstretched Hands: 2= Slight Tremor Visible Yawning Observation: 0= None Anxiety or Irritability: 2=Irritable/Anxious Goose Flesh Skin: 0=Smooth Skin COWS Score: 11 S Progress Note (SOAP) Subjective: Sweating,anxiety,tremors,interrupted sleep,body aches,diarrhea Objective: 10/13/16 11:32 Vital Signs - 8 hr 10/13/16 10/13/16 10/13/16 03:33 06:57 09:29 Temperature 96.9 F L 97.1 F L Pulse Rate 51 L 68 Respiratory 18 18 18 Rate Blood Pressure 143/92 147/92 Laboratory Last Values WBC 3.9 K/mm3 (4.0-10.0) L 10/12/16 07:40 RBC 3.10 M/mm3 (4.00-5.60) L D 10/12/16 07:40 Hgb 10.4 GM/dL (11.7-16.9) L D 10/12/16 07:40 Hct 30.8 % (35.4-49) L D 10/12/16 07:40 MCV 99.4 fl (80-96) H 10/12/16 07:40 MCH 33.5 pg (25.7-33.7) 10/12/16 07:40 MCHC 33.7 g/dl (32.0-35.9) 10/12/16 07:40 RDW 11.9 % (11.9-15.9) 10/12/16 07:40 Plt Count 147 K/MM3 (134-434) 10/12/16 07:40 MPV 9.0 fl (7.5-11.1) 10/12/16 07:40 Sodium 142 mmol/L (136-145) 10/13/16 06:30 Potassium 4.2 mmol/L (3.5-5.1) 10/13/16 06:30 Chloride 110 mmol/L (98-107) H 10/13/16 06:30 Carbon Dioxide 24 mmol/L (21-32) 10/13/16 06:30 Anion Gap 8 (8-16) 10/13/16 06:30 BUN 23 mg/dL (7-18) H 10/13/16 06:30 Creatinine 1.6 mg/dL (0.7-1.3) H 10/13/16 06:30 Creat Clearance w eGFR 38.55 (>60) 10/12/16 07:40 Random Glucose 77 mg/dL (74-106) 10/13/16 06:30 Calcium 8.6 mg/dL (8.5-10.1) 10/13/16 06:30 Total Bilirubin 0.5 mg/dL (0.2-1.0) D 10/12/16 07:40 AST 21 U/L (15-37) 10/12/16 07:40 ALT 11 U/L (12-78) L D 10/12/16 07:40 Alkaline Phosphatase 64 U/L (45-117) D 10/12/16 07:40 Total Protein 5.9 g/dl (6.4-8.2) L D 10/12/16 07:40 Albumin 3.1 g/dl (3.4-5.0) L D 10/12/16 07:40 Urine Color Yellow 10/11/16 18:16 Urine Appearance Clear 10/11/16 18:16 Urine pH 5.0 (5.0-8.0) 10/11/16 18:16 Ur Specific [place] 1.025 (1.005-1.025) 10/11/16 18:16 Urine Protein 2+ (NEGATIVE) H 10/11/16 18:16 Urine Glucose (UA) Negative (NEGATIVE) 10/11/16 18:16 Urine Ketones Negative (NEGATIVE) 10/11/16 18:16 Urine Blood Negative (NEGATIVE) 10/11/16 18:16 Urine Nitrite Negative (NEGATIVE) 10/11/16 18:16 Urine Bilirubin Negative (NEGATIVE) 10/11/16 18:16 Urine Urobilinogen Negative mg/dL (0.2-1.0) 10/11/16 18:16 Ur Leukocyte Esterase Negative (NEGATIVE) 10/11/16 18:16 Urine RBC 1 /hpf (0-3) 10/11/16 18:16 Urine WBC 2 /hpf (3-5) 10/11/16 18:16 Urine Bacteria Rare /hpf (NONE SEEN) 10/11/16 18:16 Hyaline Casts 3 /lpf 10/11/16 18:16 Urine Mucus Rare 10/11/16 18:16 RPR Titer Nonreactive (NONREACTIVE) 10/12/16 07:40 labs noted Assessment: 10/13/16 11:33 Withdrawal sx. Plan: Continue detox
--- NOTE | 2016-10-13 13:36 | CONSULT ---
[facility] Psychiatric Consult - Data Date of interview: 10/13/16 Admission source: [facility] Identifying data: Another admission to [facility] for this 61 y/o AA male seeking detox treatment on for heroin,cocaine and alcohol dependence.Patient is single,a father of three,domiciled,unemployed and supported on SSI benefits. Substance Abuse History: Patient endorses an extensive history of suicide abuse : alcohol since age 16 (40 oz of beer daily),cocaine from age 18 onwards (daily expense of 50-100 dollars),heroin via snorting since age 19 (10-15 bags per day) .Smokes 10-15 cigarettes on a daily basis.Last use : 10/12/16. Medical History: Consistent with anemia,hepatitis C and hypertension. Psychiatric History: No reported history of psychiatric hospitalizations.Previously diagnosed with MDD (years ago) and prior history of OPD care at the [facility] in [facility].Lost to follow up for several months (self-report).Mr Centeno denies history of suicide attempts. Physical/Sexual Abuse/Trauma History: Patient denies. Additional Comment: Urine Drug Screen Results: ANA ROSA-Cocaine, OPI-Opiates.Noted. Mental Status Exam - Mental Status Exam Alert and Oriented to: Time, Place, Person Cognitive Function: Good Patient Appearance: Well Groomed Mood: Withdrawn, Apprehensive Affect: Appropriate, Normal Range Patient Behavior: Fatigued, Cooperative Speech Pattern: Clear Voice Loudness: Normal Thought Process: Goal Oriented Thought Disorder: Not Present Hallucinations: Denies Suicidal Ideation: Denies Homicidal Ideation: Denies Insight/Judgement: Poor Sleep: Poorly, Difficulty falling asleep Appetite: Good Muscle strength/Tone: Normal Gait/Station: Normal Psychiatric Findings - Problem List ([place] 1, 2,3) (1) Alcohol dependence with uncomplicated withdrawal Current Visit: Yes Status: Acute (2) Opioid dependence with withdrawal Current Visit: Yes Status: Acute (3) Cocaine dependence, uncomplicated Current Visit: Yes Status: Acute (4) Nicotine dependence Current Visit: Yes Status: Acute Qualifiers: Nicotine product type: cigarettes Substance use status: uncomplicated Qualified Code(s): F17.210 - Nicotine dependence, cigarettes, uncomplicated (5) Drug-induced mood disorder Current Visit: Yes Status: Acute (6) HTN (hypertension) Current Visit: Yes Status: Chronic Qualifiers: Hypertension type: essential hypertension Qualified Code(s): I10 - Essential (primary) hypertension (7) Hx of hepatitis C Current Visit: Yes Status: Chronic (8) PPD positive, treated Current Visit: Yes Status: Chronic (9) Insomnia Current Visit: Yes Status: Chronic - Initial Treatment Plan Initial Treatment Plan: Psychoeducation.Detoxification in progress.Ambien 5 mg po hs prn.Ordered.Patient is made aware of potential for parasomnias.He is in agreement with this careplan.Observation.
[2016-10-13] MEDS: chlordiazePOXIDE 5 MG CAPSULE PO SCH ×2 (16:57→22:22)
[2016-10-13] MEDS: CYCLOBENZAPRINE HCL 10 MG TABLET (FP) PO PRN (17:00)
[2016-10-13] MEDS: MAG HYDROX/AL HYDROX/SIMETH 30 ML UNIT-DOSE CUP PO PRN (17:01)
[2016-10-13 17:42] LABS: URINE APPEARANCE SLCLOUDY; URINE BILIRUBIN NEGATIVE (NEGATIVE); URINE BLOOD NEGATIVE (NEGATIVE); URINE COLOR LTYELLOW; URINE GLUCOSE (UA) NEGATIVE (NEGATIVE); URINE KETONE NEGATIVE (NEGATIVE); URINE LEUK ESTERASE NEGATIVE (NEGATIVE); URINE NITRITE NEGATIVE (NEGATIVE); URINE PROTEIN NEGATIVE (NEGATIVE); URINE UROBILINOGEN NEGATIVE mg/dL (0.2-1.0)
[2016-10-13] MEDS: ZOLPIDEM TARTRATE 5 MG TABLET PO PRN (22:22)
[2016-10-13] MEDS: THIAMINE HCL 100 MG TABLET (FP) PO SCH (22:22)
[2016-10-14] MEDS: diphenhydrAMINE HCL 50 MG CAPSULE PO PRN (00:24)
[2016-10-14] MEDS: chlordiazePOXIDE 5 MG CAPSULE PO SCH ×2 (05:49→10:25)
[2016-10-14] MEDS: CYCLOBENZAPRINE HCL 10 MG TABLET (FP) PO PRN ×2 (05:52→14:09)
[2016-10-14] MEDS: METHADONE HCL 5 MG TABLET (FOR DETOX USE ONLY) PO SCH (10:25)
[2016-10-14] MEDS: amLODIPine BESYLATE 10 MG TABLET (FP) PO SCH (10:25)
[2016-10-14] MEDS: PRENATAL VITAMINS W/ FOLIC ACID TABLET (FP) PO SCH (10:25)
[2016-10-14] MEDS: NICOTINE 21 MG/24 HOURS TOPICAL PATCH TD SCH (10:26)
[2016-10-14] MEDS: TOLNAFTATE 1% CREAM 15 GM TUBE TP SCH ×2 (10:26→22:38)
[2016-10-14] MEDS: ARTIFICIAL TEARS (POLYVINYL ALCOHOL 1.4%) OPTH DROPS OU SCH ×2 (10:26→22:38)
--- NOTE | 2016-10-14 13:08 | PN ---
[facility] Progress Note (SOAP) Subjective: Sweating,interrupted sleep,restless. Objective: 10/14/16 13:06 Vital Signs - 8 hr 10/14/16 10/14/16 06:48 09:27 Temperature 96.5 F L 99.3 F Pulse Rate 67 74 Respiratory 18 18 Rate Blood Pressure 139/88 145/83 Laboratory Last Values WBC 3.9 K/mm3 (4.0-10.0) L 10/12/16 07:40 RBC 3.10 M/mm3 (4.00-5.60) L D 10/12/16 07:40 Hgb 10.4 GM/dL (11.7-16.9) L D 10/12/16 07:40 Hct 30.8 % (35.4-49) L D 10/12/16 07:40 MCV 99.4 fl (80-96) H 10/12/16 07:40 MCH 33.5 pg (25.7-33.7) 10/12/16 07:40 MCHC 33.7 g/dl (32.0-35.9) 10/12/16 07:40 RDW 11.9 % (11.9-15.9) 10/12/16 07:40 Plt Count 147 K/MM3 (134-434) 10/12/16 07:40 MPV 9.0 fl (7.5-11.1) 10/12/16 07:40 Sodium 142 mmol/L (136-145) 10/13/16 06:30 Potassium 4.2 mmol/L (3.5-5.1) 10/13/16 06:30 Chloride 110 mmol/L (98-107) H 10/13/16 06:30 Carbon Dioxide 24 mmol/L (21-32) 10/13/16 06:30 Anion Gap 8 (8-16) 10/13/16 06:30 BUN 23 mg/dL (7-18) H 10/13/16 06:30 Creatinine 1.6 mg/dL (0.7-1.3) H 10/13/16 06:30 Creat Clearance w eGFR 38.55 (>60) 10/12/16 07:40 Random Glucose 77 mg/dL (74-106) 10/13/16 06:30 Calcium 8.6 mg/dL (8.5-10.1) 10/13/16 06:30 Total Bilirubin 0.5 mg/dL (0.2-1.0) D 10/12/16 07:40 AST 21 U/L (15-37) 10/12/16 07:40 ALT 11 U/L (12-78) L D 10/12/16 07:40 Alkaline Phosphatase 64 U/L (45-117) D 10/12/16 07:40 Total Protein 5.9 g/dl (6.4-8.2) L D 10/12/16 07:40 Albumin 3.1 g/dl (3.4-5.0) L D 10/12/16 07:40 Urine Color Ltyellow 10/13/16 13:10 Urine Appearance Slcloudy 10/13/16 13:10 Urine pH 6.0 (5.0-8.0) 10/13/16 13:10 Ur Specific [place] 1.020 (1.005-1.025) 10/13/16 13:10 Urine Protein Negative (NEGATIVE) 10/13/16 13:10 Urine Glucose (UA) Negative (NEGATIVE) 10/13/16 13:10 Urine Ketones Negative (NEGATIVE) 10/13/16 13:10 Urine Blood Negative (NEGATIVE) 10/13/16 13:10 Urine Nitrite Negative (NEGATIVE) 10/13/16 13:10 Urine Bilirubin Negative (NEGATIVE) 10/13/16 13:10 Urine Urobilinogen Negative mg/dL (0.2-1.0) 10/13/16 13:10 Ur Leukocyte Esterase Negative (NEGATIVE) 10/13/16 13:10 Urine RBC 1 /hpf (0-3) 10/11/16 18:16 Urine WBC 2 /hpf (3-5) 10/11/16 18:16 Urine Bacteria Rare /hpf (NONE SEEN) 10/11/16 18:16 Hyaline Casts 3 /lpf 10/11/16 18:16 Urine Mucus Rare 10/11/16 18:16 RPR Titer Nonreactive (NONREACTIVE) 10/12/16 07:40 labs noted Assessment: 10/14/16 13:07 Withdrawal sx. Plan: Continue detox
[2016-10-14] MEDS: cloNIDine HCL 0.1 MG TABLET PO SCH ×2 (14:07→22:36)
[2016-10-14] MEDS: chlordiazePOXIDE HCL 10 MG CAPSULE PO SCH ×2 (17:06→22:36)
[2016-10-14] MEDS: THIAMINE HCL 100 MG TABLET (FP) PO SCH (22:36)
[2016-10-14] MEDS: ZOLPIDEM TARTRATE 5 MG TABLET PO PRN (22:37)
[2016-10-15] MEDS: chlordiazePOXIDE HCL 10 MG CAPSULE PO SCH ×2 (05:35→10:25)
[2016-10-15] MEDS: CYCLOBENZAPRINE HCL 10 MG TABLET (FP) PO PRN ×2 (05:35→22:24)
[2016-10-15] MEDS ORDERED: METHADONE HCL 10 MG TABLET (FOR DETOX USE ONLY) PO SCH (10:00)
[2016-10-15] MEDS: cloNIDine HCL 0.1 MG TABLET PO SCH ×2 (10:24→22:21)
[2016-10-15] MEDS: ARTIFICIAL TEARS (POLYVINYL ALCOHOL 1.4%) OPTH DROPS OU SCH ×2 (10:24→22:21)
[2016-10-15] MEDS: PRENATAL VITAMINS W/ FOLIC ACID TABLET (FP) PO SCH (10:24)
[2016-10-15] MEDS: amLODIPine BESYLATE 10 MG TABLET (FP) PO SCH (10:25)
[2016-10-15] MEDS: NICOTINE 21 MG/24 HOURS TOPICAL PATCH TD SCH (10:25)
[2016-10-15] MEDS: TOLNAFTATE 1% CREAM 15 GM TUBE TP SCH ×2 (10:25→22:21)
--- NOTE | 2016-10-15 15:14 | PN ---
[facility] Progress Note (SOAP) Subjective: Sweating,interrupted sleep,restless Objective: 10/15/16 15:13 Vital Signs - 8 hr 10/15/16 10/15/16 09:45 13:47 Temperature 98.5 F 97.6 F Pulse Rate 73 76 Respiratory 18 18 Rate Blood Pressure 143/80 149/96 Laboratory Last Values WBC 3.9 K/mm3 (4.0-10.0) L 10/12/16 07:40 RBC 3.10 M/mm3 (4.00-5.60) L D 10/12/16 07:40 Hgb 10.4 GM/dL (11.7-16.9) L D 10/12/16 07:40 Hct 30.8 % (35.4-49) L D 10/12/16 07:40 MCV 99.4 fl (80-96) H 10/12/16 07:40 MCH 33.5 pg (25.7-33.7) 10/12/16 07:40 MCHC 33.7 g/dl (32.0-35.9) 10/12/16 07:40 RDW 11.9 % (11.9-15.9) 10/12/16 07:40 Plt Count 147 K/MM3 (134-434) 10/12/16 07:40 MPV 9.0 fl (7.5-11.1) 10/12/16 07:40 Sodium 142 mmol/L (136-145) 10/13/16 06:30 Potassium 4.2 mmol/L (3.5-5.1) 10/13/16 06:30 Chloride 110 mmol/L (98-107) H 10/13/16 06:30 Carbon Dioxide 24 mmol/L (21-32) 10/13/16 06:30 Anion Gap 8 (8-16) 10/13/16 06:30 BUN 23 mg/dL (7-18) H 10/13/16 06:30 Creatinine 1.6 mg/dL (0.7-1.3) H 10/13/16 06:30 Creat Clearance w eGFR 38.55 (>60) 10/12/16 07:40 Random Glucose 77 mg/dL (74-106) 10/13/16 06:30 Calcium 8.6 mg/dL (8.5-10.1) 10/13/16 06:30 Total Bilirubin 0.5 mg/dL (0.2-1.0) D 10/12/16 07:40 AST 21 U/L (15-37) 10/12/16 07:40 ALT 11 U/L (12-78) L D 10/12/16 07:40 Alkaline Phosphatase 64 U/L (45-117) D 10/12/16 07:40 Total Protein 5.9 g/dl (6.4-8.2) L D 10/12/16 07:40 Albumin 3.1 g/dl (3.4-5.0) L D 10/12/16 07:40 Urine Color Ltyellow 10/13/16 13:10 Urine Appearance Slcloudy 10/13/16 13:10 Urine pH 6.0 (5.0-8.0) 10/13/16 13:10 Ur Specific [place] 1.020 (1.005-1.025) 10/13/16 13:10 Urine Protein Negative (NEGATIVE) 10/13/16 13:10 Urine Glucose (UA) Negative (NEGATIVE) 10/13/16 13:10 Urine Ketones Negative (NEGATIVE) 10/13/16 13:10 Urine Blood Negative (NEGATIVE) 10/13/16 13:10 Urine Nitrite Negative (NEGATIVE) 10/13/16 13:10 Urine Bilirubin Negative (NEGATIVE) 10/13/16 13:10 Urine Urobilinogen Negative mg/dL (0.2-1.0) 10/13/16 13:10 Ur Leukocyte Esterase Negative (NEGATIVE) 10/13/16 13:10 Urine RBC 1 /hpf (0-3) 10/11/16 18:16 Urine WBC 2 /hpf (3-5) 10/11/16 18:16 Urine Bacteria Rare /hpf (NONE SEEN) 10/11/16 18:16 Hyaline Casts 3 /lpf 10/11/16 18:16 Urine Mucus Rare 10/11/16 18:16 RPR Titer Nonreactive (NONREACTIVE) 10/12/16 07:40 labs noted Assessment: 10/15/16 15:14 Withdrawal sx. Plan: Continue detox
[2016-10-15] MEDS: THIAMINE HCL 100 MG TABLET (FP) PO SCH (22:21)
[2016-10-15] MEDS: ZOLPIDEM TARTRATE 5 MG TABLET PO PRN (22:23)
[2016-10-16] MEDS: CYCLOBENZAPRINE HCL 10 MG TABLET (FP) PO PRN (05:43)
[2016-10-16] MEDS ORDERED: METHADONE HCL 5 MG TABLET (FOR DETOX USE ONLY) PO SCH (06:00)
[2016-10-16] MEDS: cloNIDine HCL 0.1 MG TABLET PO SCH (10:25)
[2016-10-16] MEDS: ARTIFICIAL TEARS (POLYVINYL ALCOHOL 1.4%) OPTH DROPS OU SCH (10:25)
[2016-10-16] MEDS: amLODIPine BESYLATE 10 MG TABLET (FP) PO SCH (10:25)
[2016-10-16] MEDS: NICOTINE 21 MG/24 HOURS TOPICAL PATCH TD SCH (10:25)
[2016-10-16] MEDS: PRENATAL VITAMINS W/ FOLIC ACID TABLET (FP) PO SCH (10:25)
[2016-10-16] MEDS: TOLNAFTATE 1% CREAM 15 GM TUBE TP SCH (10:26)
[2016-10-16 10:53] VITALS: BP 119/76; PULSE 73; TEMP 96.7
--- NOTE | 2016-10-16 14:22 | DS ---
[facility] Detox Discharge Summary Admission Date: 10/11/16 Discharge Date: 10/16/16 - History Present History: Alcohol Dependence, Cocaine Dependence, Opioid Dependence Pertinent Past History: HTN Hep C - Physical Exam Results Vital Signs: Vital Signs Temperature 96.7 F L 10/16/16 10:53 Pulse Rate 73 10/16/16 10:53 Respiratory Rate 18 10/16/16 10:53 Blood Pressure 119/76 10/16/16 10:53 O2 Sat by Pulse Oximetry (%) Pertinent Admission Physical Exam Findings: Withdrawal sx. Laboratory Last Values WBC 3.9 K/mm3 (4.0-10.0) L 10/12/16 07:40 RBC 3.10 M/mm3 (4.00-5.60) L D 10/12/16 07:40 Hgb 10.4 GM/dL (11.7-16.9) L D 10/12/16 07:40 Hct 30.8 % (35.4-49) L D 10/12/16 07:40 MCV 99.4 fl (80-96) H 10/12/16 07:40 MCH 33.5 pg (25.7-33.7) 10/12/16 07:40 MCHC 33.7 g/dl (32.0-35.9) 10/12/16 07:40 RDW 11.9 % (11.9-15.9) 10/12/16 07:40 Plt Count 147 K/MM3 (134-434) 10/12/16 07:40 MPV 9.0 fl (7.5-11.1) 10/12/16 07:40 Sodium 142 mmol/L (136-145) 10/13/16 06:30 Potassium 4.2 mmol/L (3.5-5.1) 10/13/16 06:30 Chloride 110 mmol/L (98-107) H 10/13/16 06:30 Carbon Dioxide 24 mmol/L (21-32) 10/13/16 06:30 Anion Gap 8 (8-16) 10/13/16 06:30 BUN 23 mg/dL (7-18) H 10/13/16 06:30 Creatinine 1.6 mg/dL (0.7-1.3) H 10/13/16 06:30 Creat Clearance w eGFR 38.55 (>60) 10/12/16 07:40 Random Glucose 77 mg/dL (74-106) 10/13/16 06:30 Calcium 8.6 mg/dL (8.5-10.1) 10/13/16 06:30 Total Bilirubin 0.5 mg/dL (0.2-1.0) D 10/12/16 07:40 AST 21 U/L (15-37) 10/12/16 07:40 ALT 11 U/L (12-78) L D 10/12/16 07:40 Alkaline Phosphatase 64 U/L (45-117) D 10/12/16 07:40 Total Protein 5.9 g/dl (6.4-8.2) L D 10/12/16 07:40 Albumin 3.1 g/dl (3.4-5.0) L D 10/12/16 07:40 Urine Color Ltyellow 10/13/16 13:10 Urine Appearance Slcloudy 10/13/16 13:10 Urine pH 6.0 (5.0-8.0) 10/13/16 13:10 Ur Specific [place] 1.020 (1.005-1.025) 10/13/16 13:10 Urine Protein Negative (NEGATIVE) 10/13/16 13:10 Urine Glucose (UA) Negative (NEGATIVE) 10/13/16 13:10 Urine Ketones Negative (NEGATIVE) 10/13/16 13:10 Urine Blood Negative (NEGATIVE) 10/13/16 13:10 Urine Nitrite Negative (NEGATIVE) 10/13/16 13:10 Urine Bilirubin Negative (NEGATIVE) 10/13/16 13:10 Urine Urobilinogen Negative mg/dL (0.2-1.0) 10/13/16 13:10 Ur Leukocyte Esterase Negative (NEGATIVE) 10/13/16 13:10 Urine RBC 1 /hpf (0-3) 10/11/16 18:16 Urine WBC 2 /hpf (3-5) 10/11/16 18:16 Urine Bacteria Rare /hpf (NONE SEEN) 10/11/16 18:16 Hyaline Casts 3 /lpf 10/11/16 18:16 Urine Mucus Rare 10/11/16 18:16 RPR Titer Nonreactive (NONREACTIVE) 10/12/16 07:40 labs noted - Treatment Hospital Course: Detox Protocol Followed, Detoxed Safely, Responded well, Discharged Condition Good, Rehab Referral Accepted Patient has Accepted a Rehab Referral to: [facility] - Medication Discharge Medications: Ambulatory Orders Amlodipine Besylate [Norvasc -] 10 mg PO DAILY 08/04/16 - Diagnosis (1) Alcohol dependence with uncomplicated withdrawal Status: Acute (2) Cocaine dependence, uncomplicated Status: Acute (3) Drug-induced mood disorder Status: Acute (4) Nicotine dependence Status: Acute Qualifiers: Nicotine product type: cigarettes Substance use status: uncomplicated Qualified Code(s): F17.210 - Nicotine dependence, cigarettes, uncomplicated (5) Opioid dependence with withdrawal Status: Acute (6) HTN (hypertension) Status: Chronic Qualifiers: Hypertension type: essential hypertension Qualified Code(s): I10 - Essential (primary) hypertension (7) Hx of hepatitis C Status: Chronic - AMA Did Patient Leave Against Medical Advice: No
== END 2016-10-16 11:50 | disposition home or self-care (01) | DRG 773 ==
LOC: YASAS 11:06 → Y3N 14:21
PROVIDERS: ADMIT Internal Medicine; ATTEND Internal Medicine
PROC: HZ2ZZZZ Detoxification Services for Substance Abuse Treatment (ICD-10-PCS; principal; 2016-10-11)
DX: F11.23 Opioid dependence with withdrawal (principal); F10.230 Alcohol dependence with withdrawal, uncomplicated; F14.20 Cocaine dependence, uncomplicated; F17.210 Nicotine dependence, cigarettes, uncomplicated; F19.24 Other psychoactive substance dependence with psychoactive substance-induced mood disorder; I10 Essential (primary) hypertension; B18.2 Chronic viral hepatitis C; G47.00 Insomnia, unspecified; R76.11 Nonspecific reaction to tuberculin skin test without active tuberculosis; N17.9 Acute kidney failure, unspecified; R80.9 Proteinuria, unspecified; H04.123 Dry eye syndrome of bilateral lacrimal glands; Z91.018 Allergy to other foods; Z91.14 Patient's other noncompliance with medication regimen
CPT/HCPCS: 36415; 80048; 80053; 81003; 81015; 85027; 86593; 93005; 93010

== ENCOUNTER 2016-11-20 10:52 | Inpatient (IN) | payer OTHER ==
[2016-11-20 11:13] VITALS: BMI 20.3
--- NOTE | 2016-11-20 15:53 | HP ---
COWS - Scale Resting Pulse: 0= [place] 80 or Below Sweatin= Chills/Flushing Restless Observation: 3= Extraneous Movement Pupil Size: 2= Moderately Dilated Bone or Joint Aches: 4=Acute Joint/Muscle Pain Runny Nose/ Eye Tearin= Nasal Congestion GI Upset > 30mins: 1= Stomach Cramp Tremor Observation: 2= Slight Tremor Visible Yawning Observation: 2= >3x During Session Anxiety or Irritability: 2=Irritable/Anxious Goose Flesh Skin: 0=Smooth Skin COWS Score: 18 CIWA Score - CIWA Score Nausea/Vomitin (DIARRHEA) Muscle Tremors: 4-Moderate,w/Arms Extend Anxiety: 4-Mod. Anxious/Guarded Agitation: 4-Moderately Restless Paroxysmal Sweats: 1-Minimal Palms Moist Orientation: 0-Oriented Tacttile Disturbances: 3-Moderate Itch/Numb/Burn Auditory Disturbances: 0-None Visual Disturbances: 0-None Headache: 1-Very Mild CIWA-Ar Total Score: 20 Admission ROS S - HPI Chief Complaint: DETOX TX FOR HEROIN AND ALCOHOL DEPENDENCE Allergies/Adverse Reactions: Allergies Allergy/AdvReac Type Severity Reaction Status Date / Time Pork/Porcine Containing Allergy Unknown Swelling Verified 11/20/16 11:59 Products No Known Drug Allergies Allergy Verified 11/20/16 11:59 History of Present Illness: 61 Y/O AA/MALE WITH A HX OF ALCOHOL, HEROIN AND COCAINE DEPENDENCE SEEKING DETOX [place] Exam Limitations: No Limitations - Ebola screening Have you traveled outside of the country in the last 21 days: No Have you had contact with anyone from an Ebola affected area: No Have you been sick,other than usual withdrawal symptoms: No - Review of Systems Constitutional: Chills, Loss of Appetite, Changes in sleep, Unintentional Wgt. Loss EENT: reports: Blurred Vision, Tearing (DRY EYES), Nose Congestion, Dental Problems (MISSING TEETH) Respiratory: reports: No Symptoms reported Cardiac: reports: Lightheadedness GI: reports: Constipated, Diarrhea, Nausea, Poor Appetite, Poor Fluid Intake, Vomiting, Indigestion (GERD) : reports: No Symptoms Reported Musculoskeletal: reports: Back Pain, Joint Pain, Muscle Pain Integumentary: reports: Pruritus, Rash (ON LEGS-HYDROCORTISONE CREAM) Neuro: reports: Headache, Numbness, Tingling, Tremors, Unsteady Gait, Dizziness Endocrine: reports: No Symptoms Reported Hematology: reports: Anemia Psychiatric: reports: Orientated x3, Anxious, Depressed Other Systems: Reviewed and Negative Patient History - Patient Medical History Hx Anemia: Yes (NO CURRENT MED) Hx Asthma: No Hx Chronic Obstructive Pulmonary Disease (COPD): No Hx Cancer: No Hx Cardiac Disorders: No Hx Congestive Heart Failure: No Hx Hypertension: Yes (ON MED BUT NONE FOR PAST THREE MONTHS) Hx Hypercholesterolemia: No Hx Pacemaker: No HX Cerebrovascular Accident: No Hx Seizures: No Hx Dementia: No Hx Diabetes: No Hx Gastrointestinal Disorders: Yes (PEPTOBISMOL) Hx Liver Disease: Yes (hep c) Hx Genitourinary Disorders: No Hx Sexually Transmitted Disorders: No (DENIES) Hx Renal Disease (ESRD): No Hx Thyroid Disease: No Hx Human Immunodeficiency Virus (HIV): No (NEGATIVE HX) Hx Hepatitis C: Yes (NO TREATMENT) Hx Depression: Yes (NO CURRENT MEDS) Hx Suicide Attempt: No (DENIES) Hx Bipolar Disorder: No Hx Schizophrenia: No - Patient Surgical History Past Surgical History: No Hx Neurologic Surgery: No Hx Cataract Extraction: No Hx Cardiac Surgery: No Hx Lung Surgery: No Hx Breast Surgery: No Hx Breast Biopsy: No Hx Abdominal Surgery: No Hx Appendectomy: No Hx Cholecystectomy: No Hx Genitourinary Surgery: No Hx Orthopedic Surgery: No Anesthesia Reaction: No - PPD History Previous Implant?: Yes Documented Results: Positive w/proof Implanted On Prior [facility] Admission?: Yes Results: cxray(-)06/10/16 PPD to be Administered?: No - Reproductive History Patient is a Female of Child Bearing Age (11 -55 yrs old): No (MALE) Patient : (N/A) - Smoking Cessation Smoking history: Current every day smoker Have you smoked in the past 12 months: Yes Aproximately how many cigarettes per day: 10 Cigars Per Day: 20 Hx Chewing Tobacco Use: No Initiated information on smoking cessation: Yes 'Breaking Loose' booklet given: 11/20/16 - Substance & Tx. History Hx Alcohol Use: Yes (VODKA/RUM/BEER) Hx Substance Use: Yes (HEROIN/COCAINE) Substance Use Type: Alcohol, Cocaine, Heroin Hx Substance Use Treatment: Yes (LAST TX AT [facility] DETOX) - Substances Abused Heroin Route: Inhalation Frequency: Daily Amount used: 15 bags Age of first use: 26 Date of Last Use: 11/19/16 Alcohol Route: Oral Frequency: Daily Amount used: vodka(1 pint)/beer-1 quart Age of first use: 17 Date of Last Use: 11/18/16 Cocaine Route: Smoking Frequency: Daily Amount used: $120 Age of first use: 27 Date of Last Use: 11/19/16 Family Disease History - Family Disease History Family Disease History: Heart Disease: Father (, HTN,), Other: Father, Mother (, renal), Brother (three - one HIV - IVDU), Sister ( one - - seizure), Son (one - living - healthy), Daughter (two - living - healthy) Admission Physical Exam S - Vital Signs Vital Signs: Vital Signs - 24 hr 11/20/16 11:09 Temperature 97 F L Pulse Rate 69 Respiratory 20 Rate Blood Pressure 163/95 - Physical General Appearance: Yes: Moderate Distress, Irritable, Anxious HEENTM: Yes: EOMI, Normocephalic, JOSE ALBERTO, Pharynx Normal Respiratory: Yes: Chest Non-Tender, Lungs Clear, Normal Breath Sounds, No Respiratory Distress Neck: Yes: No masses,lesions,Nodules, Supple, Trachea in good position Breast: Yes: Breast Exam Deferred Cardiology: Yes: Regular Rhythm, Regular Rate, S1, S2 Abdominal: Yes: Normal Bowel Sounds, Non Tender, Soft Genitourinary: Yes: Other (N/C) Back: Yes: Within Normal Limits Musculoskeletal: Yes: full range of Motion, Gait Steady Extremities: Yes: Normal Range of Motion, Non-Tender Neurological: Yes: spa host II-XII NML intact, Fully Oriented, Alert Integumentary: Yes: Dry, Warm, Rash (LEFT LEG-) Lymphatic: Yes: Within Normal Limits - Diagnostic (1) Alcohol dependence with uncomplicated withdrawal Current Visit: Yes Status: Acute (2) Cocaine dependence, uncomplicated Current Visit: Yes Status: Acute (3) Nicotine dependence Current Visit: Yes Status: Acute Qualifiers: Nicotine product type: cigarettes Substance use status: in withdrawal Qualified Code(s): F17.213 - Nicotine dependence, cigarettes, with withdrawal (4) Opioid dependence with withdrawal Current Visit: Yes Status: Acute (5) Dry eyes, bilateral Current Visit: Yes Status: Chronic (6) HTN (hypertension) Current Visit: Yes Status: Chronic Qualifiers: Hypertension type: essential hypertension Qualified Code(s): I10 - Essential (primary) hypertension (7) Hx of hepatitis C Current Visit: No Status: Chronic (8) Weight loss Current Visit: Yes Status: Chronic (9) Anemia, macrocytic Current Visit: Yes Status: Suspected (10) Dermatitis Current Visit: Yes Status: Acute Cleared for Admission S - Detox or Rehab S Level of Care: Medically Managed Detox Regimen/Protocol: Methadone/Valium (PT PREFERRES THE VALIUM TO LIBRIUM) [facility] Breath Alcohol Content Breath Alcohol Content: 0 Urine Drug Screen - Results Drug Screen Negative: No Urine Drug Screen Results: ANA ROSA-Cocaine, OPI-Opiates, BZO-Benzodiazepines
[2016-11-20] MEDS ORDERED: MENTHOL/PHENOL 1 EACH UD MM PRN (16:02)
[2016-11-20] MEDS ORDERED: METHADONE HCL 10 MG TABLET (FOR DETOX USE ONLY) PO ONE ×2 (16:02→23:00)
[2016-11-20] MEDS ORDERED: MAGNESIUM CITRATE 300 ML BOTTLE PO PRN (16:02)
[2016-11-20] MEDS ORDERED: diazePAM 5 MG TABLET PO ONE (16:02)
[2016-11-20] MEDS ORDERED: P-EPHED 60MG/TRIPROLIDI 2.5MG TABLET PO PRN (16:02)
[2016-11-20] MEDS ORDERED: NICOTINE POLACRILEX 2 MG GUM BC PRN (16:02)
[2016-11-20] MEDS ORDERED: LOPERAMIDE HCL 2 MG CAPSULE PO PRN (16:02)
[2016-11-20] MEDS ORDERED: guaiFENesin/D-METHORPHAN HB 10 ML UNIT-DOSE CUPS PO PRN (16:02)
[2016-11-20] MEDS ORDERED: MAGNESIUM HYDROX 2400MG/30ML ORAL SUSPENSION 30 ML CUP PO PRN (16:02)
[2016-11-20] MEDS ORDERED: hydrOXYzine PAMOATE 50 MG CAPSULE (FP) PO PRN (16:02)
[2016-11-20] MEDS ORDERED: diphenhydrAMINE HCL 50 MG CAPSULE PO PRN (16:02)
[2016-11-20] MEDS ORDERED: METHADONE HCL 10 MG TABLET (FOR DETOX USE ONLY) ONE (18:33)
[2016-11-20] MEDS: NICOTINE 14 MG/24 HOURS TOPICAL PATCH TD SCH (18:36)
[2016-11-20] MEDS: MAG HYDROX/AL HYDROX/SIMETH 30 ML UNIT-DOSE CUP PO PRN (20:35)
[2016-11-20] MEDS: THIAMINE HCL 100 MG TABLET (FP) PO SCH (22:15)
[2016-11-20] MEDS: diazePAM 5 MG TABLET PO SCH (22:15)
[2016-11-21 00:32] LABS: URINE APPEARANCE CLEAR; URINE BILIRUBIN NEGATIVE (NEGATIVE); URINE BLOOD NEGATIVE (NEGATIVE); URINE COLOR YELLOW; URINE GLUCOSE (UA) NEGATIVE (NEGATIVE); URINE KETONE NEGATIVE (NEGATIVE); URINE LEUK ESTERASE NEGATIVE (NEGATIVE); URINE NITRITE NEGATIVE (NEGATIVE); URINE UROBILINOGEN NEGATIVE mg/dL (0.2-1.0)
[2016-11-21 00:37] LABS: URINE PROTEIN 1+ (NEGATIVE)
[2016-11-21 00:59] LABS: URINE MUCUS RARE; URINE RBC 1 /hpf (0-3); URINE WBC 2 /hpf (3-5)
[2016-11-21] MEDS: diazePAM 5 MG TABLET PO PRN ×3 (01:13→17:11)
[2016-11-21] MEDS: MAG HYDROX/AL HYDROX/SIMETH 30 ML UNIT-DOSE CUP PO PRN ×2 (05:12→17:08)
[2016-11-21] MEDS: diazePAM 5 MG TABLET PO SCH ×3 (05:12→22:15)
--- NOTE | 2016-11-21 09:24 | EKG ---
Test Reason : Blood Pressure : / mmHG Vent. Rate : 062 BPM Atrial Rate : 062 BPM P-R Int : 148 ms QRS Dur : 084 ms QT Int : 406 ms P-R-T Axes : 075 006 041 degrees QTc Int : 412 ms NORMAL SINUS RHYTHM RIGHT ATRIAL ENLARGEMENT WHEN COMPARED WITH ECG OF 11-OCT-2016 15:50, ABERRANT CONDUCTION IS NO LONGER PRESENT Confirmed by MARGARETH IRIZARRY MD ([id number]) on 11/21/2016 9:23:27 AM Referred By: Confirmed By:MARGARETH IRIZARRY MD
[2016-11-21] MEDS ORDERED: METHADONE HCL 10 MG TABLET (FOR DETOX USE ONLY) PO SCH (10:00)
--- NOTE | 2016-11-21 10:13 | CONSULT ---
[facility] Psychiatric Consult - Data Date of interview: 11/21/16 Admission source: [facility] Identifying data: Readmission to [facility] for this 61 y/o AA male seeking detox treatment on for heroin,cocaine and alcohol dependence.Patient is single,a father of six (declared three at a previous encounter),domiciled, unemployed and supported on Public Assistance (SSI pending as per self-report). Substance Abuse History: Discussed with patient in this interview.Patient confirmed this report. Smoking Cessation. Smoking history: Current every day smoker. Have you smoked in the past 12 months: Yes. Aproximately how many cigarettes per day: 10. Cigars Per Day: 20. Hx Chewing Tobacco Use: No. Initiated information on smoking cessation: Yes. 'Breaking Loose' booklet given : 11/20/16. - Substance & Tx. History. Hx Alcohol Use: Yes (VODKA/RUM/BEER). Hx Substance Use: Yes (HEROIN/COCAINE). Substance Use Type: Alcohol, Cocaine, Heroin. Hx Substance Use Treatment: Yes (LAST TX AT [facility] DETOX). - Substances Abused. Heroin. Route: Inhalation. Frequency: Daily. Amount used: 15 bags. Age of first use: 26. Date of Last Use: 11/19/16. Alcohol. Route: Oral. Frequency: Daily. Amount used: vodka(1 pint)/beer-1 quart. Age of first use: 17. Date of Last Use: 11/18/16. Cocaine. Route: Smoking. Frequency: Daily. Amount used: $120. Age of first use: 27. Date of Last Use: 11/19/16 Medical History: Anemia,hepatitis C and hypertension. Psychiatric History: Patient denies. Physical/Sexual Abuse/Trauma History: Patient denies. Additional Comment: Urine Drug Screen Results: ANA ROSA-Cocaine, OPI-Opiates, BZO- Benzodiazepines.Noted. Mental Status Exam - Mental Status Exam Alert and Oriented to: Time, Place, Person Cognitive Function: Good Patient Appearance: Well Groomed Mood: Hopeful, Euthymic Affect: Appropriate, Normal Range Patient Behavior: Fatigued, Appropriate, Cooperative Speech Pattern: Clear Voice Loudness: Normal Thought Process: Goal Oriented Thought Disorder: Not Present Hallucinations: Denies Suicidal Ideation: Denies Homicidal Ideation: Denies Insight/Judgement: Poor Sleep: Poorly, Difficulty falling asleep Appetite: Good Muscle strength/Tone: Normal Gait/Station: Normal Psychiatric Findings - Problem List ([place] 1, 2,3) (1) Alcohol dependence with uncomplicated withdrawal Current Visit: Yes Status: Acute (2) Opioid dependence with withdrawal Current Visit: Yes Status: Acute (3) Cocaine dependence, uncomplicated Current Visit: Yes Status: Acute (4) Nicotine dependence Current Visit: Yes Status: Acute Qualifiers: Nicotine product type: cigarettes Substance use status: in withdrawal Qualified Code(s): F17.213 - Nicotine dependence, cigarettes, with withdrawal (5) Drug-induced mood disorder Current Visit: Yes Status: Acute (6) HTN (hypertension) Current Visit: Yes Status: Chronic Qualifiers: Hypertension type: essential hypertension Qualified Code(s): I10 - Essential (primary) hypertension (7) Anemia, macrocytic Current Visit: Yes Status: Suspected (8) Hx of hepatitis C Current Visit: Yes Status: Chronic (9) Insomnia Current Visit: Yes Status: Chronic - Initial Treatment Plan Initial Treatment Plan: Psychoeducation.Detoxification.Medication : ambien 10 mg po hs prn.Patient made aware of potential for parasomnias.He is in agreement with this careplan.Observation.
[2016-11-21 10:21] LABS: MCH 33.7 pg (25.7-33.7); MCHC 33.4 g/dl (32.0-35.9); MEAN CELL VOLUME 100.9 fl (80-96); MEAN PLT VOLUME 8.4 fl (7.5-11.1); PLATELET COUNT 191 K/MM3 (134-434); RDW 12.5 % (11.9-15.9); WHITE BLOOD COUNT 4.9 K/mm3 (4.0-10.0)
[2016-11-21] MEDS: NICOTINE 14 MG/24 HOURS TOPICAL PATCH TD SCH (10:23)
[2016-11-21] MEDS: PRENATAL VITAMINS W/ FOLIC ACID TABLET (FP) PO SCH (10:24)
[2016-11-21 10:46] LABS: ANION GAP 7 (8-16); CALCIUM 8.9 mg/dL (8.5-10.1); CO2 30 mmol/L (21-32); GLUCOSE,RANDOM 72 mg/dL (74-106)
[2016-11-21 10:49] LABS: ALK PHOS 89 U/L (45-117); BILIRUBIN,TOTAL 1.2 mg/dL (0.2-1.0); SGOT/AST 27 U/L (15-37); SGPT/ALT 17 U/L (12-78); TOT PROT 7.3 g/dl (6.4-8.2)
[2016-11-21] MEDS ORDERED: ZOLPIDEM TARTRATE 5 MG TABLET PO PRN (12:04)
[2016-11-21] MEDS: HYDROCORTISONE 1% TOPICAL CREAM 30 GM TUBE TP SCH ×2 (13:26→22:15)
[2016-11-21] MEDS: THIAMINE HCL 100 MG TABLET (FP) PO SCH (22:15)
[2016-11-21] MEDS: ZOLPIDEM TARTRATE 10 MG TABLET (PARK CARE ONLY) PO PRN (22:17)
[2016-11-22] MEDS: diazePAM 5 MG TABLET PO PRN ×2 (05:21→17:21)
[2016-11-22] MEDS: MAG HYDROX/AL HYDROX/SIMETH 30 ML UNIT-DOSE CUP PO PRN ×2 (05:22→17:23)
[2016-11-22] MEDS: HYDROCORTISONE 1% TOPICAL CREAM 30 GM TUBE TP SCH ×3 (06:56→23:22)
[2016-11-22] MEDS ORDERED: METHADONE HCL 5 MG TABLET (FOR DETOX USE ONLY) PO SCH (10:00)
[2016-11-22] MEDS: PRENATAL VITAMINS W/ FOLIC ACID TABLET (FP) PO SCH (10:23)
[2016-11-22] MEDS: diazePAM 5 MG TABLET PO SCH ×2 (10:23→22:12)
[2016-11-22] MEDS: NICOTINE 14 MG/24 HOURS TOPICAL PATCH TD SCH (10:23)
[2016-11-22] MEDS ORDERED: ONDANSETRON *ODT* 4 MG TABLET SL PRN (10:41)
[2016-11-22] MEDS: IBUPROFEN 400 MG TABLET (FP) PO PRN ×2 (10:59→17:22)
[2016-11-22] MEDS ORDERED: cloNIDine HCL 0.1 MG TABLET PO ONE (11:00)
[2016-11-22] MEDS: ARTIFICIAL TEARS (POLYVINYL ALCOHOL 1.4%) OPTH DROPS OU PRN ×2 (12:23→22:14)
--- NOTE | 2016-11-22 14:25 | PN ---
[facility] Progress Note Note: Psychiatry Attending's note : Approached by patient. Issue : insomnia not responding to zolpidem 10 mg/hs. Mr Centeno reports history of sleep improvement on seroquel. Previous records revisited.Past treatment with seroquel : confirmed. Plan : seroquel 50 mg po hs.Ordered at patient's request. Side effects/benefits discussed with the patient. Will monitor response.
--- NOTE | 2016-11-22 19:44 | PN ---
S CIWA - CIWA Score Nausea/Vomitin Muscle Tremors: 2 Anxiety: 4-Mod. Anxious/Guarded Agitation: 2 Paroxysmal Sweats: 3 Orientation: 0-Oriented Tacttile Disturbances: 0-None Auditory Disturbances: 0-None Visual Disturbances: 0-None Headache: 3-Moderate CIWA-Ar Total Score: 17 BHS COWS - Scale Resting Pulse: 0= [place] 80 or Below Sweatin= Chills/Flushing Restless Observation: 1= Difficult to Sit Still Pupil Size: 0= Normal to Room Light Bone or Joint Aches: 2= Severe Diffuse Aches Runny Nose/ Eye Tearin= Nasal Congestion GI Upset > 30mins: 2= Nausea/Diarrhea Tremor Observation of Outstretched Hands: 2= Slight Tremor Visible Yawning Observation: 1= 1-2x During Session Anxiety or Irritability: 2=Irritable/Anxious Goose Flesh Skin: 3=Piloerection COWS Score: 15 S Progress Note (SOAP) Subjective: Nausea, Sweating, Diarrhea, H/A, Interrupted Sleep. Objective: PT. A & O X 3, OBSERVED AMBULATING ON UNIT. NO ACUTE DISTRESS. PT. DENIES CHEST PAIN. 11/22/16 19:42 Vital Signs Temperature 97.0 F L 11/22/16 17:46 Pulse Rate 71 11/22/16 17:46 Respiratory Rate 18 11/22/16 17:46 Blood Pressure 127/82 11/22/16 17:46 O2 Sat by Pulse Oximetry (%) Laboratory Tests 11/21/16 11/21/16 11/21/16 00:01 07:00 07:00 WBC 4.9 RBC 3.33 L Hgb 11.2 L Hct 33.6 L MCV 100.9 H MCH 33.7 MCHC 33.4 RDW 12.5 Plt Count 191 D MPV 8.4 Sodium 143 Potassium 4.1 Chloride 106 Carbon Dioxide 30 D Anion Gap 7 L BUN 26 H Creatinine 2.0 H D Creat Clearance w eGFR 34.14 Random Glucose 72 L Calcium 8.9 Total Bilirubin 1.2 H D AST 27 D ALT 17 D Alkaline Phosphatase 89 D Total Protein 7.3 D Albumin 4.0 D Urine Color Yellow Urine Appearance Clear Urine pH 7.0 Urine Protein 1+ H Urine Glucose (UA) Negative Urine Ketones Negative Urine Blood Negative Urine Nitrite Negative Urine Bilirubin Negative Urine Urobilinogen Negative Ur Leukocyte Esterase Negative Urine RBC 1 Urine WBC 2 Urine Mucus Rare RPR Titer 11/21/16 07:00 WBC RBC Hgb Hct MCV MCH MCHC RDW Plt Count MPV Sodium Potassium Chloride Carbon Dioxide Anion Gap BUN Creatinine Creat Clearance w eGFR Random Glucose Calcium Total Bilirubin AST ALT Alkaline Phosphatase Total Protein Albumin Urine Color Urine Appearance Urine pH Urine Protein Urine Glucose (UA) Urine Ketones Urine Blood Urine Nitrite Urine Bilirubin Urine Urobilinogen Ur Leukocyte Esterase Urine RBC Urine WBC Urine Mucus RPR Titer Nonreactive LABS NOTED. Assessment: 11/22/16 19:43 WITHDRAWAL SYMPTOMS. Plan: CONTINUE DETOX. CLONIDINE, 0.1 MG PO FOR ELEVATED BP AND FOR DETOX SYMPTOMS. PRN ZOFRAN SL FOR NAUSEA / VOMITING. INCREASE PO FLUID INTAKE. REPEAT CBC AND CMP ON 11/23/2016 FOR ADMISSION ABNORMAL VALUES. D/C IBUPROFEN AND MAGNESIUM-CONTAINING MEDS. FOR ABNORMAL RENAL VALUES. PATIENT REQUESTING TO BE ABLE TO BE DISCHARGED ON 11/24/2016 SO TO BE ABLE TO SECURE BED THAT HE IS SCHEDULED TO HAVE AT [facility]. METHADONE DETOX REGIMEN MODIFIED ACCORDINGLY. VALIUM DETOX REGIMEN TO REMAIN IS.
[2016-11-22] MEDS: ZOLPIDEM TARTRATE 10 MG TABLET (PARK CARE ONLY) PO PRN (22:12)
[2016-11-22] MEDS: QUEtiapine FUMARATE 50 MG TABLET PO SCH (22:12)
[2016-11-22] MEDS: THIAMINE HCL 100 MG TABLET (FP) PO SCH (22:30)
[2016-11-23] MEDS: diazePAM 5 MG TABLET PO PRN ×2 (06:06→12:21)
[2016-11-23] MEDS: ARTIFICIAL TEARS (POLYVINYL ALCOHOL 1.4%) OPTH DROPS OU PRN ×2 (06:07→22:19)
[2016-11-23] MEDS: HYDROCORTISONE 1% TOPICAL CREAM 30 GM TUBE TP SCH ×3 (06:08→22:20)
[2016-11-23] MEDS: ACETAMINOPHEN 325 MG TABLET (FP) PO PRN (06:09)
[2016-11-23] MEDS: MAG HYDROX/AL HYDROX/SIMETH 30 ML UNIT-DOSE CUP PO PRN (06:09)
[2016-11-23] MEDS ORDERED: METHADONE HCL 10 MG TABLET (FOR DETOX USE ONLY) PO SCH (10:00)
[2016-11-23] MEDS ORDERED: amLODIPine BESYLATE 10 MG TABLET (FP) PO SCH (10:00)
[2016-11-23] MEDS: FERROUS SO4 325 MG TABLET (FP) PO SCH ×2 (10:11→17:26)
[2016-11-23] MEDS: PRENATAL VITAMINS W/ FOLIC ACID TABLET (FP) PO SCH (10:11)
[2016-11-23] MEDS: NICOTINE 14 MG/24 HOURS TOPICAL PATCH TD SCH (10:11)
[2016-11-23] MEDS: diazePAM 5 MG TABLET PO SCH ×2 (10:11→22:19)
[2016-11-23 10:30] LABS: BASOPHIL 0.5 % (0-2.0); EOSINOPHIL 2.2 % (0-4.5); MCH 33.5 pg (25.7-33.7); MCHC 32.9 g/dl (32.0-35.9); MEAN PLT VOLUME 9.2 fl (7.5-11.1); NEUTROPHILS 49.8 % (42.8-82.8); PLATELET COUNT 142 K/MM3 (134-434); RDW 12.9 % (11.9-15.9); WHITE BLOOD COUNT 4.5 K/mm3 (4.0-10.0)
[2016-11-23 10:46] LABS: ALBUMIN 3.5 g/dl (3.4-5.0); ANION GAP 6 (8-16); BILIRUBIN,TOTAL 0.8 mg/dL (0.2-1.0); CALCIUM 8.5 mg/dL (8.5-10.1); CO2 29 mmol/L (21-32); GLUCOSE,RANDOM 85 mg/dL (74-106); SGOT/AST 20 U/L (15-37); SGPT/ALT 14 U/L (12-78); TOT PROT 6.5 g/dl (6.4-8.2)
[2016-11-23 10:47] LABS: ALK PHOS 80 U/L (45-117)
--- NOTE | 2016-11-23 15:46 | PN ---
S CIWA - CIWA Score Nausea/Vomitin Muscle Tremors: 3 Anxiety: 4-Mod. Anxious/Guarded Agitation: 2 Paroxysmal Sweats: 3 Orientation: 0-Oriented Tacttile Disturbances: 2-Mild Itch/Numbness/Burn Auditory Disturbances: 0-None Visual Disturbances: 3-Moderate Sensitivity Headache: 0-None Present CIWA-Ar Total Score: 20 BHS COWS - Scale Resting Pulse: 1= [place] 81-100 Sweatin= Chills/Flushing Restless Observation: 1= Difficult to Sit Still Pupil Size: 0= Normal to Room Light Bone or Joint Aches: 2= Severe Diffuse Aches Runny Nose/ Eye Tearin= None GI Upset > 30mins: 2= Nausea/Diarrhea Tremor Observation of Outstretched Hands: 2= Slight Tremor Visible Yawning Observation: 1= 1-2x During Session Anxiety or Irritability: 2=Irritable/Anxious Goose Flesh Skin: 0=Smooth Skin COWS Score: 12 S Progress Note (SOAP) Subjective: Interrupted sleep, Sweating, Stomach Cramping, Body Aches, Diarrhea. Objective: PT. A & O X 3, OBSERVED AMBULATING ON UNIT. NO ACUTE DISTRESS. PT. DENIES CHEST PAIN. 11/23/16 15:46 Vital Signs Temperature 97.5 F L 11/23/16 14:42 Pulse Rate 85 11/23/16 14:42 Respiratory Rate 18 11/23/16 14:42 Blood Pressure 145/93 11/23/16 14:42 O2 Sat by Pulse Oximetry (%) Laboratory Tests 11/21/16 11/21/16 11/21/16 00:01 07:00 07:00 WBC 4.9 RBC 3.33 L Hgb 11.2 L Hct 33.6 L MCV 100.9 H MCH 33.7 MCHC 33.4 RDW 12.5 Plt Count 191 D MPV 8.4 Neutrophils % Lymphocytes % Monocytes % Eosinophils % Basophils % Sodium 143 Potassium 4.1 Chloride 106 Carbon Dioxide 30 D Anion Gap 7 L BUN 26 H Creatinine 2.0 H D Creat Clearance w eGFR 34.14 Random Glucose 72 L Calcium 8.9 Total Bilirubin 1.2 H D AST 27 D ALT 17 D Alkaline Phosphatase 89 D Total Protein 7.3 D Albumin 4.0 D Urine Color Yellow Urine Appearance Clear Urine pH 7.0 Urine Protein 1+ H Urine Glucose (UA) Negative Urine Ketones Negative Urine Blood Negative Urine Nitrite Negative Urine Bilirubin Negative Urine Urobilinogen Negative Ur Leukocyte Esterase Negative Urine RBC 1 Urine WBC 2 Urine Mucus Rare RPR Titer 11/21/16 11/23/16 11/23/16 07:00 07:00 07:00 WBC 4.5 RBC 2.94 L Hgb 9.9 L D Hct 30.0 L MCV 102.0 H MCH 33.5 MCHC 32.9 RDW 12.9 Plt Count 142 D MPV 9.2 Neutrophils % 49.8 Lymphocytes % 37.6 Monocytes % 9.9 Eosinophils % 2.2 Basophils % 0.5 Sodium 146 H Potassium 4.4 Chloride 111 H Carbon Dioxide 29 Anion Gap 6 L BUN 23 H Creatinine 2.0 H Creat Clearance w eGFR 34.14 Random Glucose 85 Calcium 8.5 Total Bilirubin 0.8 D AST 20 D ALT 14 Alkaline Phosphatase 80 Total Protein 6.5 Albumin 3.5 Urine Color Urine Appearance Urine pH Urine Protein Urine Glucose (UA) Urine Ketones Urine Blood Urine Nitrite Urine Bilirubin Urine Urobilinogen Ur Leukocyte Esterase Urine RBC Urine WBC Urine Mucus RPR Titer Nonreactive LABS NOTED. RESULTS OF REPEAT CBC AND CMP NOTED. 11/23/16 15:55 Assessment: WITHDRAWAL SYMPTOMS. 11/23/16 15:47 Plan: CONTINUE DETOX.
[2016-11-23] MEDS: ZOLPIDEM TARTRATE 10 MG TABLET (PARK CARE ONLY) PO PRN (22:19)
[2016-11-23] MEDS: THIAMINE HCL 100 MG TABLET (FP) PO SCH (22:19)
[2016-11-23] MEDS: QUEtiapine FUMARATE 50 MG TABLET PO SCH (22:19)
[2016-11-24] MEDS: ARTIFICIAL TEARS (POLYVINYL ALCOHOL 1.4%) OPTH DROPS OU PRN (05:44)
[2016-11-24] MEDS: HYDROCORTISONE 1% TOPICAL CREAM 30 GM TUBE TP SCH (05:45)
[2016-11-24] MEDS: ACETAMINOPHEN 325 MG TABLET (FP) PO PRN (05:49)
[2016-11-24] MEDS ORDERED: METHADONE HCL 5 MG TABLET (FOR DETOX USE ONLY) PO SCH (06:00)
[2016-11-24] MEDS: FERROUS SO4 325 MG TABLET (FP) PO SCH (07:50)
[2016-11-24 09:09] VITALS: BP 145/85; PULSE 81; TEMP 98.3
[2016-11-24] MEDS ORDERED: diazePAM 5 MG TABLET PO SCH (10:00)
[2016-11-24] MEDS ORDERED: METHADONE HCL 10 MG TABLET (FOR DETOX USE ONLY) PO SCH (10:00)
--- NOTE | 2016-11-24 17:52 | DS ---
[facility] Detox Discharge Summary Admission Date: 11/20/16 Discharge Date: 11/24/16 - History Present History: Alcohol Dependence, Cocaine Dependence, Opioid Dependence Additional Comments: PATIENT GOING TO OUTPATIENT PROGRAM IN [facility] (PT. CANNOT RECALL NAME OF PROGRAM AT THIS TIME). PATIENT WAS DISCHARGED FROM UNIT IN STABLE MEDICAL CONDITION. Pertinent Past History: History of anemia, HTN, Insomnia, Depression, Chronic Dry Eyes, Insomnia, Dermatitis. - Physical Exam Results Vital Signs: Vital Signs Temperature 98.3 F 11/24/16 09:08 Pulse Rate 81 11/24/16 09:08 Respiratory Rate 18 11/24/16 09:08 Blood Pressure 145/85 11/24/16 09:08 O2 Sat by Pulse Oximetry (%) Pertinent Admission Physical Exam Findings: WITHDRAWAL SYMPTOMS. Laboratory Tests 11/21/16 11/21/16 11/21/16 00:01 07:00 07:00 WBC 4.9 RBC 3.33 L Hgb 11.2 L Hct 33.6 L MCV 100.9 H MCH 33.7 MCHC 33.4 RDW 12.5 Plt Count 191 D MPV 8.4 Neutrophils % Lymphocytes % Monocytes % Eosinophils % Basophils % Sodium 143 Potassium 4.1 Chloride 106 Carbon Dioxide 30 D Anion Gap 7 L BUN 26 H Creatinine 2.0 H D Creat Clearance w eGFR 34.14 Random Glucose 72 L Calcium 8.9 Total Bilirubin 1.2 H D AST 27 D ALT 17 D Alkaline Phosphatase 89 D Total Protein 7.3 D Albumin 4.0 D Urine Color Yellow Urine Appearance Clear Urine pH 7.0 Urine Protein 1+ H Urine Glucose (UA) Negative Urine Ketones Negative Urine Blood Negative Urine Nitrite Negative Urine Bilirubin Negative Urine Urobilinogen Negative Ur Leukocyte Esterase Negative Urine RBC 1 Urine WBC 2 Urine Mucus Rare RPR Titer 11/21/16 11/23/16 11/23/16 07:00 07:00 07:00 WBC 4.5 RBC 2.94 L Hgb 9.9 L D Hct 30.0 L MCV 102.0 H MCH 33.5 MCHC 32.9 RDW 12.9 Plt Count 142 D MPV 9.2 Neutrophils % 49.8 Lymphocytes % 37.6 Monocytes % 9.9 Eosinophils % 2.2 Basophils % 0.5 Sodium 146 H Potassium 4.4 Chloride 111 H Carbon Dioxide 29 Anion Gap 6 L BUN 23 H Creatinine 2.0 H Creat Clearance w eGFR 34.14 Random Glucose 85 Calcium 8.5 Total Bilirubin 0.8 D AST 20 D ALT 14 Alkaline Phosphatase 80 Total Protein 6.5 Albumin 3.5 Urine Color Urine Appearance Urine pH Urine Protein Urine Glucose (UA) Urine Ketones Urine Blood Urine Nitrite Urine Bilirubin Urine Urobilinogen Ur Leukocyte Esterase Urine RBC Urine WBC Urine Mucus RPR Titer Nonreactive LABS NOTED. - Treatment Hospital Course: Detox Protocol Followed, Detoxed Safely, Responded well, Discharged Condition Good Patient has Accepted a Rehab Referral to: PATIENT GOING TO OUTPATIENT PROGRAM IN [facility]. - Medication Discharge Medications: Ambulatory Orders Amlodipine Besylate [Norvasc -] 10 mg PO DAILY #30 mg 11/24/16 - Diagnosis (1) Alcohol dependence with uncomplicated withdrawal Status: Acute (2) Cocaine dependence, uncomplicated Status: Acute (3) Drug-induced mood disorder Status: Acute (4) Nicotine dependence Status: Chronic Qualifiers: Nicotine product type: cigarettes Substance use status: in withdrawal Qualified Code(s): F17.213 - Nicotine dependence, cigarettes, with withdrawal (5) Opioid dependence with withdrawal Status: Acute (6) Dermatitis Status: Chronic (7) Dry eyes, bilateral Status: Chronic (8) HTN (hypertension) Status: Chronic Qualifiers: Hypertension type: essential hypertension Qualified Code(s): I10 - Essential (primary) hypertension (9) History of depression Status: Chronic (10) Hx of hepatitis C Status: Chronic (11) Insomnia Status: Chronic Qualifiers: Insomnia type: unspecified Qualified Code(s): G47.00 - Insomnia, unspecified (12) Anemia, macrocytic Status: Suspected (13) Weight loss Status: Chronic - AMA Did Patient Leave Against Medical Advice: No
[2016-11-25] MEDS ORDERED: METHADONE HCL 5 MG TABLET (FOR DETOX USE ONLY) PO SCH (06:00)
== END 2016-11-24 09:26 | disposition home or self-care (01) | DRG 773 ==
LOC: YASAS 10:52 → Y3N 15:13
PROVIDERS: ADMIT Internal Medicine Addiction Medicine; ATTEND Internal Medicine Addiction Medicine
PROC: HZ2ZZZZ Detoxification Services for Substance Abuse Treatment (ICD-10-PCS; principal; 2016-11-20)
DX: F11.23 Opioid dependence with withdrawal (principal); F10.230 Alcohol dependence with withdrawal, uncomplicated; F14.20 Cocaine dependence, uncomplicated; F17.213 Nicotine dependence, cigarettes, with withdrawal; F19.24 Other psychoactive substance dependence with psychoactive substance-induced mood disorder; I10 Essential (primary) hypertension; L30.9 Dermatitis, unspecified; H04.123 Dry eye syndrome of bilateral lacrimal glands; B18.2 Chronic viral hepatitis C; G47.00 Insomnia, unspecified; D53.9 Nutritional anemia, unspecified; Z86.59 Personal history of other mental and behavioral disorders; Z91.018 Allergy to other foods; Z87.898 Personal history of other specified conditions
CPT/HCPCS: 36415; 80053; 81003; 81015; 85025; 85027; 86593; 93005; 93010

== ENCOUNTER 2022-07-08 17:37 | Inpatient (IN) | payer OTHER ==
[2022-07-08 17:58] VITALS: BMI 17.6
[2022-07-08] MEDS ORDERED: LORazepam 2 MG TABLET PO ONE (20:30)
[2022-07-08 20:39] LABS: BASO % 0.7 % (0-2.0); EOS % 2.2 % (0-4.5); HEMATOCRIT 27.7 % (35.4-49); HEMOGLOBIN 9.4 GM/dL (11.7-16.9); LYMPH % 35.5 % (8-40); MCH 34.4 pg (25.7-33.7); MEAN CELL VOLUME 101.4 fl (80-96); MEAN PLT VOLUME 8.3 fl (7.5-11.1); MONO % 7.7 % (3.8-10.2); NEUT % 53.9 % (42.8-82.8); PLATELET COUNT 128 10^3/uL (134-434); RBC 2.73 M/mm3 (4.00-5.60); RDW 12.4 % (11.9-15.9)
[2022-07-08] MEDS ORDERED: LORazepam 1 MG TABLET ONE (20:48)
[2022-07-08 20:51] LABS: ALBUMIN 3.8 g/dl (3.4-5.0)
[2022-07-08 20:54] LABS: CREATININE 6.1 mg/dL (0.55-1.3)
[2022-07-08 20:59] LABS: N-TERMINAL BNP 1579.9 pg/ml (5-125)
[2022-07-08 21:00] LABS: BILIRUBIN,TOTAL 1.4 mg/dL (0.2-1)
[2022-07-08 22:39] LABS: CHLORIDE 114 mmol/L (98-107); SODIUM 144 mmol/L (136-145)
[2022-07-08 22:41] LABS: BLOOD UREA NITROGEN 49.4 mg/dL (7-18); CALCIUM 7.2 mg/dL (8.5-10.1); CO2 24 mmol/L (21-32); GLUCOSE,RANDOM 89 mg/dL (74-106)
[2022-07-08 22:45] LABS: ANION GAP 6 MMOL/L (8-16); CREATININE 5.4 mg/dL (0.55-1.3)
[2022-07-08] MEDS ORDERED: LACTATED RINGERS SOLUTION 1000 ML INFUS.BAG IV ONE (23:03)
[2022-07-08] MEDS ORDERED: POTASSIUM CHLORIDE ORAL LIQUID 20 MEQ/15 ML PO ONE (23:09)
[2022-07-08] MEDS ORDERED: POTASSIUM CHLORIDE ORAL LIQUID 20 MEQ/15 ML ONE (23:34)
[2022-07-08] MEDS ORDERED: KCL 10 MEQ IVPB 10 MEQ/100 ML INFUS.BAG IVPB ONE (23:34)
[2022-07-09] MEDS ORDERED: MAGNESIUM SULF 50% (8.12 MEQ/2 ML-1 GM VIAL) IVPB ONE (00:25)
[2022-07-09] MEDS: KCL 10 MEQ IVPB 10 MEQ/100 ML INFUS.BAG IVPB SCH ×2 (00:28→02:35)
[2022-07-09] MEDS ORDERED: MAGNESIUM SULFATE IN WATER 2 GM/50 ML IVPB IVPB ONE (01:57)
[2022-07-09] MEDS ORDERED: KCL 10 MEQ IVPB 10 MEQ/100 ML INFUS.BAG IVPB ONE (02:30)
[2022-07-09] MEDS ORDERED: LACTATED RINGERS SOLUTION 1,000 ML/1,000 ML INFUS.BAG IV SCH (04:30)
[2022-07-09 04:54] LABS: EPI CELLS 3 /uL (0-25.1); HYALINE CASTS 1 /uL (0-3.1); PH,URINE 5.5 (5.0-8.0); URINE APPEARANCE CLEAR; URINE BACTERIA 33 /uL (0-1359); URINE BILIRUBIN NEGATIVE (NEGATIVE); URINE COLOR YELLOW; URINE GLUCOSE (UA) NEGATIVE (NEGATIVE); URINE KETONE NEGATIVE (NEGATIVE); URINE LEUK ESTERASE NEGATIVE (NEGATIVE); URINE NITRITE NEGATIVE (NEGATIVE); URINE PROTEIN 2+ (NEGATIVE); URINE RBC 8 /uL (0-23.9); URINE UROBILINOGEN 0.2 mg/dL (0.2-1.0); URINE WBC 7 /uL (0-25.8)
[2022-07-09 05:01] LABS: PHENCYCLIDINE,URINE NEGATIVE (NEGATIVE); URINE AMPHETAMINES NEGATIVE (NEGATIVE); URINE BENZODIAZEPINES NEGATIVE (NEGATIVE)
[2022-07-09 05:28] LABS: COCAINE, UR POSITIVE (NEGATIVE); METHADONE, UR POSITIVE (NEGATIVE); OPIATES, URI POSITIVE (NEGATIVE); URINE BARBITURATES NEGATIVE (NEGATIVE)
[2022-07-09] MEDS ORDERED: HEPARIN NA (PORCINE) 5,000 UNITS/ML 1ML VIAL ONE (06:11)
[2022-07-09] MEDS: HEPARIN NA (PORCINE) 5,000 UNITS/ML 1ML VIAL SQ SCH ×3 (06:23→21:02)
[2022-07-09 06:24] LABS: ARTERIAL BLD GAS O2 SATURATION 97.5 % (95-98); ARTERIAL BLOOD GAS BASE EXCESS -2.4 mmol/L (-2-2); ARTERIAL BLOOD GAS PO2 98.5 mmHg (80-100); ARTERIAL BLOOD GAS pH 7.394 (7.350-7.450)
[2022-07-09 06:30] LABS: ALLENS TEST POSITIVE
[2022-07-09 06:33] LABS: HEMATOCRIT 21.9 % (35.4-49); HEMOGLOBIN 7.8 GM/dL (11.7-16.9); MCH 35.3 pg (25.7-33.7); MCHC 35.5 g/dl (32.0-35.9); MEAN CELL VOLUME 99.5 fl (80-96); MEAN PLT VOLUME 8.4 fl (7.5-11.1); PLATELET COUNT 84 10^3/uL (134-434); RBC 2.21 M/mm3 (4.00-5.60)
[2022-07-09] MEDS ORDERED: methaDONE HCL 40 MG DISPERSABLE TABLET PO SCH (06:46)
[2022-07-09] MEDS ORDERED: methaDONE HCL 10 MG TABLET PO ONE (06:48)
[2022-07-09 06:54] LABS: BLOOD UREA NITROGEN 53.5 mg/dL (7-18); CALCIUM 7.9 mg/dL (8.5-10.1); MAGNESIUM 2.1 mg/dL (1.8-2.4)
[2022-07-09 06:57] LABS: CREATININE 5.5 mg/dL (0.55-1.3)
[2022-07-09 06:59] LABS: BILIRUBIN,TOTAL 0.6 mg/dL (0.2-1); TOT PROT 5.4 g/dl (6.4-8.2)
[2022-07-09] MEDS ORDERED: methaDONE HCL 40 MG DISPERSABLE TABLET ONE (07:32)
[2022-07-09] MEDS ORDERED: methaDONE HCL 10 MG TABLET ONE (07:33)
[2022-07-09 07:41] LABS: RETICULOCYTES 0.42 % (0.5-1.5)
[2022-07-09] MEDS ORDERED: hydrALAZINE HCL 20 MG/ML VIAL ONE (09:08)
[2022-07-09] MEDS: hydrALAZINE HCL 20 MG/ML VIAL IVPUSH PRN (09:13)
[2022-07-09] MEDS ORDERED: NIFEdipine E.R 60 MG TABLET PO SCH (10:00)
[2022-07-09] MEDS: NICOTINE 14 MG/24 HOURS TOPICAL PATCH TD SCH (10:42)
[2022-07-09] MEDS: NIFEdipine E.R 60 MG TABLET PO SCH (10:42)
[2022-07-09] MEDS ORDERED: POTASSIUM CHLORIDE ORAL LIQUID 20 MEQ/15 ML PO ONE (11:39)
[2022-07-09] MEDS: SODIUM CHLORIDE 0.45% 1,000 ML IV SCH (11:52)
[2022-07-09 15:40] LABS: HEPATITIS B SURFACE AG MATERN NON-REACTIVE (NONREACTIVE)
[2022-07-09 16:08] LABS: HIV INTERPRETATION NEGATIVE (NEGATIVE)
[2022-07-09] MEDS: ACETAMINOPHEN 325 MG TABLET (FP) PO PRN (16:08)
[2022-07-09 17:57] LABS: EPI CELLS 2 /uL (0-25.1); HYALINE CASTS 0 /uL (0-3.1); URINE APPEARANCE CLEAR; URINE BACTERIA 29 /uL (0-1359); URINE BILIRUBIN NEGATIVE (NEGATIVE); URINE COLOR YELLOW; URINE GLUCOSE (UA) NEGATIVE (NEGATIVE); URINE KETONE NEGATIVE (NEGATIVE); URINE LEUK ESTERASE NEGATIVE (NEGATIVE); URINE NITRITE NEGATIVE (NEGATIVE); URINE PROTEIN 2+ (NEGATIVE); URINE RBC 2 /uL (0-23.9); URINE UROBILINOGEN 0.2 mg/dL (0.2-1.0); URINE WBC 1 /uL (0-25.8)
[2022-07-10] MEDS: SODIUM CHLORIDE 0.45% 1,000 ML IV SCH ×2 (03:14→14:04)
[2022-07-10] MEDS: HEPARIN NA (PORCINE) 5,000 UNITS/ML 1ML VIAL SQ SCH ×3 (05:42→21:08)
[2022-07-10] MEDS: hydrALAZINE HCL 20 MG/ML VIAL IVPUSH PRN (06:54)
[2022-07-10] MEDS ORDERED: methaDONE HCL 40 MG DISPERSABLE TABLET PO SCH (07:00)
[2022-07-10 07:27] LABS: HEMATOCRIT 25.4 % (35.4-49); HEMOGLOBIN 8.8 GM/dL (11.7-16.9); MCH 35.1 pg (25.7-33.7); MCHC 34.9 g/dl (32.0-35.9); MEAN CELL VOLUME 100.7 fl (80-96); PLATELET COUNT 95 10^3/uL (134-434); RBC 2.52 M/mm3 (4.00-5.60); RDW 12.2 % (11.9-15.9); WHITE BLOOD COUNT 3.3 K/mm3 (4.0-10.0)
[2022-07-10 07:48] LABS: BLOOD UREA NITROGEN 49.2 mg/dL (7-18); CALCIUM 8.6 mg/dL (8.5-10.1)
[2022-07-10 07:52] LABS: PHOSPHOROUS 2.2 mg/dL (2.5-4.9)
[2022-07-10 07:53] LABS: BILIRUBIN,TOTAL 0.8 mg/dL (0.2-1); CREATININE 4.8 mg/dL (0.55-1.3); TOT PROT 6.6 g/dl (6.4-8.2)
[2022-07-10] MEDS ORDERED: NAPH,MB-DB/K PH,MBDB POWDER PACKET PO ONE (08:07)
[2022-07-10 08:11] LABS: ALBUMIN 3.6 g/dl (3.4-5.0)
[2022-07-10] MEDS: NIFEdipine E.R 60 MG TABLET PO SCH (09:38)
[2022-07-10] MEDS: NICOTINE 14 MG/24 HOURS TOPICAL PATCH TD SCH (09:38)
[2022-07-10] MEDS ORDERED: hydrALAZINE HCL 25 MG TABLET (FP) PO SCH (10:30)
[2022-07-10] MEDS: POLYETHYLENE GLYCOL (HEALTHYLAX) 3350 17 GM PACKET PO SCH ×2 (10:59→21:08)
[2022-07-10] MEDS: hydrALAZINE HCL 25 MG TABLET (FP) PO SCH ×2 (14:02→21:08)
[2022-07-10 21:07] LABS: ANTIGLOMERULAR BASEMENT MEN.AB <0.2 units (0.0-0.9)
[2022-07-11] MEDS: MELATONIN 5 MG TABLETS PO SCH ×2 (00:06→21:35)
[2022-07-11] MEDS: SODIUM CHLORIDE 0.45% 1,000 ML IV SCH ×2 (02:13→15:15)
[2022-07-11] MEDS: ACETAMINOPHEN 325 MG TABLET (FP) PO PRN (02:25)
[2022-07-11] MEDS: hydrALAZINE HCL 25 MG TABLET (FP) PO SCH ×3 (05:34→21:35)
[2022-07-11] MEDS: HEPARIN NA (PORCINE) 5,000 UNITS/ML 1ML VIAL SQ SCH ×3 (05:35→21:35)
[2022-07-11] MEDS ORDERED: methaDONE HCL 10 MG TABLET PO SCH (06:00)
[2022-07-11 07:01] LABS: HEMATOCRIT 25.4 % (35.4-49); HEMOGLOBIN 8.9 GM/dL (11.7-16.9); MCH 35.5 pg (25.7-33.7); MEAN CELL VOLUME 101.5 fl (80-96); MEAN PLT VOLUME 9.3 fl (7.5-11.1); PLATELET COUNT 43 10^3/uL (134-434); RDW 12.4 % (11.9-15.9); WHITE BLOOD COUNT 4.3 K/mm3 (4.0-10.0)
[2022-07-11 07:04] LABS: ALBUMIN 3.5 g/dl (3.4-5.0); CALCIUM 9.3 mg/dL (8.5-10.1); MAGNESIUM 1.9 mg/dL (1.8-2.4)
[2022-07-11 07:07] LABS: CREATININE 4.3 mg/dL (0.55-1.3); PHOSPHOROUS 1.8 mg/dL (2.5-4.9)
[2022-07-11 07:09] LABS: BILIRUBIN,TOTAL 0.9 mg/dL (0.2-1); TOT PROT 6.6 g/dl (6.4-8.2)
[2022-07-11 08:09] LABS: BETA-2-MICROGLOBULIN 6.5 mg/L (0.6-2.4)
[2022-07-11] MEDS ORDERED: SODIUM PHOSPHATE - 30 MM in SODIUM CHLORIDE 500 ML IVPB ONE (10:00)
[2022-07-11] MEDS: NICOTINE 14 MG/24 HOURS TOPICAL PATCH TD SCH (10:04)
[2022-07-11] MEDS: POLYETHYLENE GLYCOL (HEALTHYLAX) 3350 17 GM PACKET PO SCH ×2 (10:04→21:35)
[2022-07-11] MEDS: NIFEdipine E.R. 90 MG TABLET PO SCH (10:05)
[2022-07-11] MEDS: amLODIPine BESYLATE 5 MG TABLET (FP) PO SCH (10:07)
[2022-07-11] MEDS: PANTOPRAZOLE 20 MG TABLET PO SCH (10:55)
[2022-07-11 16:08] LABS: ATYPICAL pANCA <1:20 titer (Neg:<1:20); C-ANCA <1:20 titer (Neg:<1:20)
[2022-07-11] MEDS ORDERED: MELATONIN 5 MG TABLETS PO SCH (22:00)
[2022-07-12] MEDS: SODIUM CHLORIDE 0.45% 1,000 ML IV SCH ×3 (02:46→17:37)
[2022-07-12] MEDS: ACETAMINOPHEN 325 MG TABLET (FP) PO PRN ×2 (02:50→19:34)
[2022-07-12] MEDS: HEPARIN NA (PORCINE) 5,000 UNITS/ML 1ML VIAL SQ SCH (05:19)
[2022-07-12] MEDS: hydrALAZINE HCL 25 MG TABLET (FP) PO SCH ×2 (05:19→13:30)
[2022-07-12 08:46] LABS: HEMATOCRIT 26.1 % (35.4-49); HEMOGLOBIN 8.9 GM/dL (11.7-16.9); MCH 34.5 pg (25.7-33.7); MCHC 34.3 g/dl (32.0-35.9); MEAN CELL VOLUME 100.7 fl (80-96); MEAN PLT VOLUME 8.5 fl (7.5-11.1); PLATELET COUNT 113 10^3/uL (134-434); RBC 2.59 M/mm3 (4.00-5.60); RDW 12.6 % (11.9-15.9); WHITE BLOOD COUNT 3.8 K/mm3 (4.0-10.0)
[2022-07-12 09:02] LABS: ALBUMIN 3.5 g/dl (3.4-5.0); MAGNESIUM 1.7 mg/dL (1.8-2.4)
[2022-07-12 09:05] LABS: CREATININE 3.9 mg/dL (0.55-1.3)
[2022-07-12 09:06] LABS: PHOSPHOROUS 3.7 mg/dL (2.5-4.9)
[2022-07-12 09:07] LABS: BILIRUBIN,TOTAL 0.9 mg/dL (0.2-1); TOT PROT 6.6 g/dl (6.4-8.2)
[2022-07-12] MEDS: NICOTINE 14 MG/24 HOURS TOPICAL PATCH TD SCH (09:16)
[2022-07-12] MEDS: NIFEdipine E.R. 90 MG TABLET PO SCH (09:16)
[2022-07-12] MEDS: PANTOPRAZOLE 20 MG TABLET PO SCH (09:16)
[2022-07-12] MEDS: amLODIPine BESYLATE 5 MG TABLET (FP) PO SCH (09:16)
[2022-07-12] MEDS: POLYETHYLENE GLYCOL (HEALTHYLAX) 3350 17 GM PACKET PO SCH ×2 (09:24→21:05)
[2022-07-12] MEDS: MELATONIN 5 MG TABLETS PO SCH (21:01)
[2022-07-12] MEDS: hydrALAZINE HCL 50 MG TABLET (FP) PO SCH (21:04)
[2022-07-13] MEDS: hydrALAZINE HCL 50 MG TABLET (FP) PO SCH ×3 (05:27→21:41)
[2022-07-13 08:35] LABS: BASO % 0.7 % (0-2.0); EOS % 1.8 % (0-4.5); HEMATOCRIT 29.2 % (35.4-49); HEMATOCRIT 29.4 % (35.4-49); LYMPH % 25.1 % (8-40); MCH 34.4 pg (25.7-33.7); MCH 34.7 pg (25.7-33.7); MCHC 34.2 g/dl (32.0-35.9); MCHC 34.3 g/dl (32.0-35.9); MEAN CELL VOLUME 100.7 fl (80-96); MEAN CELL VOLUME 101.1 fl (80-96); MEAN PLT VOLUME 9.2 fl (7.5-11.1); MEAN PLT VOLUME 9.4 fl (7.5-11.1); MONO % 8.2 % (3.8-10.2); NEUT % 64.2 % (42.8-82.8); PLATELET COUNT 126 10^3/uL (134-434); PLATELET COUNT 129 10^3/uL (134-434); RBC 2.89 M/mm3 (4.00-5.60); RBC 2.92 M/mm3 (4.00-5.60); RDW 12.4 % (11.9-15.9); RDW 12.6 % (11.9-15.9); WHITE BLOOD COUNT 4.7 K/mm3 (4.0-10.0)
[2022-07-13] MEDS: NIFEdipine E.R. 90 MG TABLET PO SCH ×2 (08:51→09:20)
[2022-07-13] MEDS: amLODIPine BESYLATE 5 MG TABLET (FP) PO SCH ×2 (08:51→09:19)
[2022-07-13 08:59] LABS: ALBUMIN 3.7 g/dl (3.4-5.0); BLOOD UREA NITROGEN 52.2 mg/dL (7-18); CALCIUM 9.1 mg/dL (8.5-10.1); MAGNESIUM 1.8 mg/dL (1.8-2.4)
[2022-07-13 09:01] LABS: PHOSPHOROUS 3.5 mg/dL (2.5-4.9)
[2022-07-13 09:02] LABS: CREATININE 3.8 mg/dL (0.55-1.3)
[2022-07-13 09:03] LABS: BILIRUBIN,TOTAL 1.4 mg/dL (0.2-1); TOT PROT 7.1 g/dl (6.4-8.2)
[2022-07-13] MEDS: NICOTINE 14 MG/24 HOURS TOPICAL PATCH TD SCH (09:21)
[2022-07-13] MEDS: POLYETHYLENE GLYCOL (HEALTHYLAX) 3350 17 GM PACKET PO SCH ×2 (09:21→21:41)
[2022-07-13] MEDS: PANTOPRAZOLE 20 MG TABLET PO SCH (09:21)
[2022-07-13] MEDS: metoPROLOL SUCCINATE 25 MG TAB.SR.24H (FP) PO SCH (10:04)
[2022-07-13] MEDS: SODIUM CHLORIDE 0.45% 1,000 ML IV SCH ×2 (11:45→14:45)
[2022-07-13] MEDS ORDERED: MAGNESIUM 2GM/50ML STERILE WATER IVPB IVPB ONE (14:45)
[2022-07-13] MEDS: MELATONIN 5 MG TABLETS PO SCH (21:41)
[2022-07-14] MEDS: ACETAMINOPHEN 325 MG TABLET (FP) PO PRN ×2 (01:32→21:21)
[2022-07-14] MEDS: hydrALAZINE HCL 50 MG TABLET (FP) PO SCH ×3 (05:13→21:21)
[2022-07-14 08:29] LABS: HEMATOCRIT 29.1 % (35.4-49); HEMOGLOBIN 9.8 GM/dL (11.7-16.9); MCH 34.4 pg (25.7-33.7); MCHC 33.8 g/dl (32.0-35.9); MEAN CELL VOLUME 101.8 fl (80-96); MEAN PLT VOLUME 8.9 fl (7.5-11.1); PLATELET COUNT 124 10^3/uL (134-434); RBC 2.86 M/mm3 (4.00-5.60); RDW 12.5 % (11.9-15.9); WHITE BLOOD COUNT 4.8 K/mm3 (4.0-10.0)
[2022-07-14 08:52] LABS: ALBUMIN 3.7 g/dl (3.4-5.0); BLOOD UREA NITROGEN 55.4 mg/dL (7-18); CALCIUM 9.2 mg/dL (8.5-10.1); MAGNESIUM 2.5 mg/dL (1.8-2.4)
[2022-07-14 08:55] LABS: CREATININE 3.4 mg/dL (0.55-1.3); PHOSPHOROUS 3.9 mg/dL (2.5-4.9)
[2022-07-14 08:57] LABS: BILIRUBIN,TOTAL 0.8 mg/dL (0.2-1); TOT PROT 6.9 g/dl (6.4-8.2)
[2022-07-14] MEDS: NICOTINE 14 MG/24 HOURS TOPICAL PATCH TD SCH (09:35)
[2022-07-14] MEDS: POLYETHYLENE GLYCOL (HEALTHYLAX) 3350 17 GM PACKET PO SCH ×2 (09:36→21:21)
[2022-07-14] MEDS: metoPROLOL SUCCINATE 25 MG TAB.SR.24H (FP) PO SCH (09:36)
[2022-07-14] MEDS: PANTOPRAZOLE 20 MG TABLET PO SCH (09:36)
[2022-07-14] MEDS: amLODIPine BESYLATE 5 MG TABLET (FP) PO SCH (09:36)
[2022-07-14] MEDS: NIFEdipine E.R. 90 MG TABLET PO SCH (09:38)
[2022-07-14] MEDS: SODIUM CHLORIDE 0.45% 1,000 ML IV SCH (19:29)
[2022-07-14] MEDS: MELATONIN 5 MG TABLETS PO SCH (22:42)
[2022-07-15] MEDS: hydrALAZINE HCL 50 MG TABLET (FP) PO SCH ×3 (06:32→21:48)
[2022-07-15 09:01] LABS: HEMATOCRIT 31.1 % (35.4-49); HEMOGLOBIN 10.7 GM/dL (11.7-16.9); MCH 34.7 pg (25.7-33.7); MCHC 34.4 g/dl (32.0-35.9); MEAN CELL VOLUME 100.9 fl (80-96); MEAN PLT VOLUME 9.3 fl (7.5-11.1); PLATELET COUNT 126 10^3/uL (134-434); RBC 3.08 M/mm3 (4.00-5.60); RDW 12.4 % (11.9-15.9); WHITE BLOOD COUNT 4.4 K/mm3 (4.0-10.0)
[2022-07-15 09:36] LABS: BLOOD UREA NITROGEN 66.8 mg/dL (7-18)
[2022-07-15 09:39] LABS: ALBUMIN 4.1 g/dl (3.4-5.0); CALCIUM 9.8 mg/dL (8.5-10.1)
[2022-07-15 09:40] LABS: CREATININE 4.1 mg/dL (0.55-1.3); PHOSPHOROUS 4.1 mg/dL (2.5-4.9)
[2022-07-15 09:41] LABS: MAGNESIUM 2.6 mg/dL (1.8-2.4)
[2022-07-15 09:42] LABS: BILIRUBIN,TOTAL 0.6 mg/dL (0.2-1); TOT PROT 7.9 g/dl (6.4-8.2)
[2022-07-15] MEDS: ACETAMINOPHEN 325 MG TABLET (FP) PO PRN (10:12)
[2022-07-15] MEDS: metoPROLOL SUCCINATE 25 MG TAB.SR.24H (FP) PO SCH (10:12)
[2022-07-15] MEDS: amLODIPine BESYLATE 5 MG TABLET (FP) PO SCH (10:12)
[2022-07-15] MEDS: PANTOPRAZOLE 20 MG TABLET PO SCH (10:12)
[2022-07-15] MEDS: POLYETHYLENE GLYCOL (HEALTHYLAX) 3350 17 GM PACKET PO SCH ×2 (10:13→21:59)
[2022-07-15] MEDS: NICOTINE 14 MG/24 HOURS TOPICAL PATCH TD SCH (10:13)
[2022-07-15] MEDS: NIFEdipine E.R. 90 MG TABLET PO SCH (10:16)
[2022-07-15] MEDS: SODIUM CHLORIDE 0.45% 1,000 ML IV SCH (14:13)
[2022-07-15] MEDS ORDERED: MECLIZINE HCL 12.5 MG TABLET PO PRN (18:58)
[2022-07-15] MEDS: MELATONIN 5 MG TABLETS PO SCH (21:47)
[2022-07-15] MEDS: LABETALOL HCL 100 MG TABLET (FP) PO SCH (21:47)
[2022-07-16] MEDS: hydrALAZINE HCL 50 MG TABLET (FP) PO SCH ×3 (06:41→21:58)
[2022-07-16 07:34] LABS: HEMATOCRIT 27.5 % (35.4-49); HEMOGLOBIN 9.5 GM/dL (11.7-16.9); MCH 35.1 pg (25.7-33.7); MCHC 34.5 g/dl (32.0-35.9); MEAN CELL VOLUME 101.8 fl (80-96); MEAN PLT VOLUME 8.8 fl (7.5-11.1); PLATELET COUNT 106 10^3/uL (134-434); RDW 12.3 % (11.9-15.9); WHITE BLOOD COUNT 4.5 K/mm3 (4.0-10.0)
[2022-07-16 08:06] LABS: CALCIUM 9.2 mg/dL (8.5-10.1)
[2022-07-16 08:07] LABS: ALBUMIN 3.7 g/dl (3.4-5.0); BLOOD UREA NITROGEN 66.4 mg/dL (7-18); MAGNESIUM 2.7 mg/dL (1.8-2.4)
[2022-07-16 08:09] LABS: CREATININE 4.2 mg/dL (0.55-1.3)
[2022-07-16 08:10] LABS: PHOSPHOROUS 4.1 mg/dL (2.5-4.9)
[2022-07-16 08:11] LABS: BILIRUBIN,TOTAL 0.7 mg/dL (0.2-1); TOT PROT 6.9 g/dl (6.4-8.2)
[2022-07-16] MEDS: ACETAMINOPHEN 325 MG TABLET (FP) PO PRN (08:50)
[2022-07-16] MEDS: POLYETHYLENE GLYCOL (HEALTHYLAX) 3350 17 GM PACKET PO SCH ×2 (09:17→21:59)
[2022-07-16] MEDS: PANTOPRAZOLE 20 MG TABLET PO SCH (09:17)
[2022-07-16] MEDS: NIFEdipine E.R. 90 MG TABLET PO SCH (09:17)
[2022-07-16] MEDS: LABETALOL HCL 100 MG TABLET (FP) PO SCH ×2 (09:17→21:58)
[2022-07-16] MEDS: amLODIPine BESYLATE 5 MG TABLET (FP) PO SCH (09:17)
[2022-07-16] MEDS: NICOTINE 14 MG/24 HOURS TOPICAL PATCH TD SCH (09:17)
[2022-07-16] MEDS: SODIUM ZIRCONIUM CYCLOSILICATE (LOKELMA) 5 GM PACKET PO SCH (12:31)
[2022-07-16] MEDS: MELATONIN 5 MG TABLETS PO SCH (21:58)
[2022-07-17] MEDS: ACETAMINOPHEN 325 MG TABLET (FP) PO PRN (08:08)
[2022-07-17] MEDS: SODIUM ZIRCONIUM CYCLOSILICATE (LOKELMA) 5 GM PACKET PO SCH (10:14)
[2022-07-17] MEDS: POLYETHYLENE GLYCOL (HEALTHYLAX) 3350 17 GM PACKET PO SCH ×2 (10:14→22:11)
[2022-07-17] MEDS: LABETALOL HCL 100 MG TABLET (FP) PO SCH ×2 (10:15→22:10)
[2022-07-17] MEDS: NICOTINE 14 MG/24 HOURS TOPICAL PATCH TD SCH (10:15)
[2022-07-17] MEDS: PANTOPRAZOLE 20 MG TABLET PO SCH (10:15)
[2022-07-17] MEDS: NIFEdipine E.R. 90 MG TABLET PO SCH (10:15)
[2022-07-17] MEDS: hydrALAZINE HCL 50 MG TABLET (FP) PO SCH ×3 (10:56→22:10)
[2022-07-17] MEDS: MELATONIN 5 MG TABLETS PO SCH (22:10)
[2022-07-18] MEDS: hydrALAZINE HCL 50 MG TABLET (FP) PO SCH ×2 (06:29→15:46)
[2022-07-18 06:35] VITALS: PULSE 69
[2022-07-18] MEDS: ACETAMINOPHEN 325 MG TABLET (FP) PO PRN (07:56)
[2022-07-18] MEDS: SODIUM ZIRCONIUM CYCLOSILICATE (LOKELMA) 5 GM PACKET PO SCH (09:29)
[2022-07-18] MEDS: NIFEdipine E.R. 90 MG TABLET PO SCH (09:29)
[2022-07-18] MEDS: POLYETHYLENE GLYCOL (HEALTHYLAX) 3350 17 GM PACKET PO SCH (09:29)
[2022-07-18] MEDS: NICOTINE 14 MG/24 HOURS TOPICAL PATCH TD SCH (09:29)
[2022-07-18] MEDS: LABETALOL HCL 100 MG TABLET (FP) PO SCH (09:29)
[2022-07-18] MEDS: PANTOPRAZOLE 20 MG TABLET PO SCH (09:29)
[2022-07-18] MEDS ORDERED: methaDONE HCL 40 MG DISPERSABLE TABLET PO SCH (11:00)
[2022-07-18 12:39] VITALS: RESP 18
[2022-07-18 15:11] VITALS: BP 125/70; TEMP 97.8
[2022-07-19] MEDS ORDERED: methaDONE HCL 40 MG DISPERSABLE TABLET PO SCH (06:00)
[2022-07-22 10:07] LABS: TOTAL PROTEIN, URINE 113.9 mg/dL (Not Estab.)
== END 2022-07-18 18:02 | disposition home or self-care (01) | DRG 683 ==
LOC: JER 17:37 → JERBED 23:23 → J4S 07-09 10:18
PROVIDERS: ADMIT Internal Medicine; ATTEND Internal Medicine
DX: N17.9 Acute kidney failure, unspecified (principal); D61.818 Other pancytopenia; I16.1 Hypertensive emergency; F11.20 Opioid dependence, uncomplicated; I24.8 Other forms of acute ischemic heart disease; F14.20 Cocaine dependence, uncomplicated; E46 Unspecified protein-calorie malnutrition; Z68.1 Body mass index [BMI] 19.9 or less, adult; E87.6 Hypokalemia; E83.42 Hypomagnesemia; I12.9 Hypertensive chronic kidney disease with stage 1 through stage 4 chronic kidney disease, or unspecified chronic kidney disease; N18.9 Chronic kidney disease, unspecified; G47.00 Insomnia, unspecified; B18.2 Chronic viral hepatitis C; D69.6 Thrombocytopenia, unspecified; E87.5 Hyperkalemia; Z59.00 Homelessness unspecified
CPT/HCPCS: 36415; 36600; 70450-TC; 71045-TC-FY; 76700-TC; 80048; 80053; 80307; 81003; 82232; 82436; 82570; 82607; 82728; 82746; 82803; 83516; 83520; 83540; 83550; 83615; 83735; 83880; 84100; 84133; 84155; 84156; 84157; 84165; 84300; 84466; 84484; 85025; 85027; 85045; 86022; 86038; 86225; 86256; 86704; 86705; 86707; 86803; 87340; 87350; 87389; 87517; 87522; 93005; 93010; 97116-GP; 97161-GP; 99285-25; C9803-CS; J1644; U0003; U0005